=== PATIENT | female | born 1950 | race Caucasian/White ===

== ENCOUNTER 2017-10-09 11:24 | Inpatient (IN) ==
[2017-10-09] MEDS ORDERED: 0.9 % Sodium Chloride 1,000 ML IVC ONE (11:48)
[2017-10-09 12:07] LABS: VBG Ionized Calcium 0.86 mmol/L (1.15-1.35)
[2017-10-09 12:08] LABS: Prothrombin Time 10.3 Seconds (9.4-12.1)
[2017-10-09 12:10] LABS: Basophils # 0.1 K/mcL (0.0-0.2); Basophils % 0.7 %; Eosinophils # 0.2 K/mcL (0.0-0.6); Eosinophils % 3.3 %; Hematocrit 37.5 % (35.3-44.9); Hemoglobin 12.8 g/dL (11.5-15.4); Immature Granulocytes % 0.9 % (0-4); Lymphocytes # 1.7 K/mcL (0.6-4.6); Lymphocytes % 24.9 %; Mean Corpuscular HGB Conc 34.1 g/dL (31.6-35.5); Mean Corpuscular Hemoglobin 31.7 pg (28.0-33.3); Mean Corpuscular Volume 92.8 fL (83.0-100.0); Mean Platelet Volume 10.1 fL (9.4-12.4); Monocytes # 0.7 K/mcL (0.0-1.3); Monocytes % 9.7 %; Neutrophils # 4.2 K/mcL (1.6-8.9); Platelet Count 240 K/mcL (140-400); Red Blood Count 4.04 M/mcL (3.82-4.97); Segmented Neutrophils % 60.5 %
[2017-10-09 12:11] LABS: BUN/Creatinine Ratio 14 (6-26); Blood Urea Nitrogen 13 mg/dL (8-23); Calcium 7.1 mg/dL (8.6-10.3); Carbon Dioxide 26 mEq/L (23-29); Chloride 105 mEq/L (98-107); Glucose 117 mg/dL (70-105); Osmolality,Calculated 293 (280-300); Potassium 3.9 mEq/L (3.5-5.1); Sodium 141 mEq/L (136-145); eGFR For African Americans > 60 (> 60); eGFR For Non-African Americans > 60 (> 60)
[2017-10-09 12:27] LABS: Thyroid Stimulating Hormone 3.146 mcIU/mL (0.340-5.600)
[2017-10-09 12:32] LABS: Magnesium 1.9 mg/dL (1.6-2.6)
[2017-10-09] MEDS ORDERED: Calcium Gluconate 1,000 MG in D5% in Water 100 ML IVPB STA (13:04)
--- NOTE | 2017-10-09 13:53 | Electrocardiograph Report ---
[place] [employer] Test Date: 2017-10-09 Pat Name: Marlene Maldonado Department: 102 Room: Gender: F Archeology Faculty Member: : [id number] Requested By: Raul Kennedy Order Number: [id number] Reading MD: Mark Mejia DO Measurements Intervals [place] Rate: 74 P: ME: 0 QRS: -9 QRSD: 88 T: -4 QT: 355 QTc: 383 Interpretive Statements ATRIAL FIBRILLATION POSSIBLE RIGHT VENTRICULAR CONDUCTION DELAY [RSR (QR) IN V1/V2] ABNORMAL RHYTHM ECG Electronically Signed On 10-09-2017 13:51:55 EST by Mark Mejia DO
[2017-10-09] MEDS ORDERED: Naloxone 0.4 MG/ML INJ IVP PRN (14:57)
[2017-10-09] MEDS ORDERED: Ondansetron 4 MG/2 ML VIAL IVP PRN (14:57)
--- NOTE | 2017-10-09 15:08 | Internal Med History&Physical ---
Date of Encounter: 10/09/17 Time of Encounter: 15:05 Assessment and Plan (1) Hypocalcemia Current visit: Yes Status: Acute 1 patient has a history of parathyroid disease she had her parathyroid removed several years ago and has been taking calcium in August her calcium level was elevated and her PCP decreased her calcitriol to twice a day instead of 3 times a day. Over the past few weeks she has been noticing tingling in her lower extremities over the past 3 days as worsened and spread to her hands and face. She did have an episode several years ago a severe hypocalcemia. Today calcium was 7.1 I calvin was 0.86. She had negative Trousseau,chvosteck no prolonged QT. She was given IV calcium in the ER. We will resume calcitriol and calcium at 3 times a day Continuous cardiac monitoring We will check calcium and replace as needed (2) Hypertension Current visit: No Status: Chronic Presently controlled we will continue with home medications Qualifiers: Hypertension type: essential hypertension Qualified Code(s): I10 - Essential (primary) hypertension (3) GERD (gastroesophageal reflux disease) Current visit: No Status: Chronic Continue with Prilosec Qualifiers: Esophagitis presence: with esophagitis Qualified Code(s): K21.0 - Gastro- esophageal reflux disease with esophagitis (4) Hypothyroid Current visit: Yes Status: Acute continuous Synthroid Qualifiers: Hypothyroidism type: unspecified Qualified Code(s): E03.9 - Hypothyroidism , unspecified (5) DVT prophylaxis Current visit: Yes Status: Chronic Lovenox subcutaneous Internal Medicine - H&P: HPI Chief complaint: tingling in face Admitted From: Emergency Dept Plans for Post Hospital Care: Transfer Inp Rehab Fac History of present illness: Ms. Maldonado is a 67 year old female past medical history of hypertension hyperlipidemia thyroid parathyroid disease GERD. According to the patient for the past 3 weeks she has been experiencing lower leg tingling over the past 3-4 days the tingling has worsened in her legs and has tingling in her arms and hands. She has noted that her face is also tingling mostly on the sides. She is concerned because she has had history of hypocalcemia related to her parathyroid disease. She has had similar symptoms in the past and her calcium levels were low. She reports that in August her PCP reduced her calcium from 3 times a day to twice a day due to an elevated calcium level. She presented to the ER with the above complaints according to ER recordshead CT was negative for any intracranial abnormalities. Lab work was unremarkable except for calcium and ionized calcium were both low. EKG sinus rhythm with no prolonged QT. She was given IV calcium and has been admitted for further workup evaluation. Presently patient does not have any chest pain or shortness of breath. She is here today with a stable this time. I did review this case with Dr. Christopher who agrees with plan. Past Med Surg Social Fam HX - Past Medical History Medical history: CVA, hyperlipidemia, thyroid disease Psychiatric history: no psych history - Past Surgical History Surgical History: thyroidectomy - Social History Smoking Status: Never smoker Smokeless Tobacco Status: No Alcohol use: none Drug use: none - Family History Mother Living Status: Cause of : Aneurysm Hx Family Endocrine Disorder: Yes (Diabetes) Father Living Status: Cause of : [place] Hx Family Cancer: Yes (Melanoma) Hx Family Endocrine Disorder: Yes (Diabetes) Internal Medicine - H&P: Meds Calcitriol [Rocaltrol] 0.25 mcg PO DAILY 10/09/17 [History] Calcium Carbonate/Vitamin D3 [Calcium 500 + Vit D Caplet] 1 tab PO DAILY [History] Levothyroxine [Synthroid] 75 mcg PO HS 10/09/17 [History] Omeprazole [PriLOSEC] 20 mg PO DAILY 10/09/17 [History] Simvastatin [Zocor] 40 mg PO DAILY 10/09/17 [History] 3 Allergy/AdvReac Type Severity Reaction Status Date / Time Amoxicillin [From Augmentin] AdvReac Vomiting Verified 10/09/17 14:34 clavulanic acid AdvReac Vomiting Verified 10/09/17 14:34 [From Augmentin] dexamethasone AdvReac Agitated Verified 10/09/17 14:34 gabapentin AdvReac See Verified 10/09/17 14:34 Comments morphine AdvReac Shakiness Verified 10/09/17 14:34 prednisone AdvReac See Verified 10/09/17 14:34 Comments All Systems PM: A 10-system review of systems was performed and is negative for pertinent findings except as documented above in the HPI. - Constitutional Constitutional: weakness, no chills, no fever(s), no night sweats - EENT Eyes: no change in vision, no discharge, no pain, no photophobia Ears: no ear discharge, no ear pain, no tinnitus Nose, mouth and throat: no dysphagia, no nasal discharge, no neck pain, no sore throat - Cardiovascular Cardiovascular ROS IM: no chest pain, no diaphoresis, no dyspnea, no lightheadedness, no palpitations, no syncope - Respiratory Respiratory: no cough, no dyspnea, no wheezing, no excessive phlegm production - Gastrointestinal Gastrointestinal: no abdominal pain, no diarrhea, no hematemesis, no hematochezia, no melena, no nausea, no vomiting - Genitourinary Genitourinary: no change in urinary stream, no dysuria, no flank pain, no hematuria - Musculoskeletal Musculoskeletal ROS IM: tingling - Integumentary Integumentary IM: no rash, no unusual bruising - Neurological Neurological ROS: tingling - Constitutional Vitals: Temp Pulse Resp BP Pulse Ox 98.0 F 87 18 121/85 97 10/09/17 11:26 10/09/17 13:21 10/09/17 13:21 10/09/17 13:21 10/09/17 13:21 General appearance: Present: A&O X 3, answers questions appropriately - Head Head exam: Present: atraumatic, normocephalic - Eye Eye exam: Present: PERRL, conjuntiva pink, sclera anicteric Pupils: Present: PERRL - Neck Neck exam general surgery: Present: supple, trachea midline. Absent: lymphadenopathy - Respiratory Respiratory exam: Present: CTAB. Absent: accessory muscle use, rales, rhonchi, wheezes - Cardiovascular Cardiovascular exam: Present: RRR, +S1, +S2. Absent: diastolic murmur, gallop, rubs, systolic murmur - GI/Abdominal GI/Abdominal exam: Present: normal bowel sounds, soft, no peritoneal signs. Absent: distended, tenderness - Extremities Exam Extremities exam: Present: warm, radial pulses palpable and symmetrical. Absent : calf tenderness, cyanotic, pedal edema - Neurological Exam Neurological exam: Present: alert, CN II-XII intact, oriented X3, no focal deficits - Skin Skin exam: Present: dry, intact Internal Med - H&P Results - Labs CBC & Chem 7: 10/09/17 11:49 10/09/17 11:49 Labs: Short CBC 10/09/17 Range/Units 11:49 WBC 7.0 (4.3-11.1) K/mcL Hgb 12.8 (11.5-15.4) g/dL Hct 37.5 (35.3-44.9) % Plt Count 240 (140-400) K/mcL Neutrophils # 4.2 (1.6-8.9) K/mcL BMP 10/09/17 11:49 Sodium 141 Potassium 3.9 Chloride 105 Carbon Dioxide 26 BUN 13 Creatinine 0.92 Glucose 117 H Calcium 7.1 L Cardiac Enzymes 10/09/17 Range/Units 11:49 Troponin I < 0.03 (< 0.04) ng/mL - EKG Data EKG shows normal: sinus rhythm - EKG Data Prior EKG available for review: yes - Impressions ITS Impressions Head CT 10/09/17 13:04 IMPRESSION: 1. No acute intracranial abnormality. D/ / Renny Gallegos MD / Renny Gallegos MD Interpreting Provider: Renny Gallegos MD - Diagnostic Studies Other Images Additional comments: Head CT 10/09/17 13:04
--- NOTE | 2017-10-09 15:48 | Emergency Department Note ---
Disposition Clinical Impression: Hypocalcemia Disposition: Admitted As Inpatient Condition: Good Neuro HPI - General Chief Complaint: ED Neuro Symptoms/Deficit Stated Complaint: numbness to face, dizzy Time Seen by Provider: 10/09/17 11:33 Source: patient Limitations: no limitations Nursing Notes Reviewed: Yes Vital Signs Reviewed: Yes - History of Present Illness HPI Narrative: Patient presents today for evaluation of paresthesias, leg cramps, legs giving out and falls. Patient states that she had a parathyroidectomy and partial removal of her thyroid gland in the past. Patient has been on calcium pills. Primary care reduced her calcium proximally 6 weeks ago. Patient concerned that she is having symptoms consistent with hypocalcemia. Symptoms similar to previous hypocalcemic episodes. Patient describes paresthesias and tingling in the extremities as well as left face. Muscle spasms with associated falls. Patient states she did not hit her head or lose consciousness. Will be further evaluated for lateral abnormalities. - Related Data Home Medications: Home Medications Medication Instructions Recorded Confirmed Calcitriol [Rocaltrol] 0.25 mcg PO DAILY 10/09/17 10/09/17 Calcium Carbonate/Vitamin D3 1 tab PO DAILY 10/09/17 10/09/17 [Calcium 500 + Vit D Caplet] Levothyroxine [Synthroid] 75 mcg PO HS 10/09/17 10/09/17 Omeprazole [PriLOSEC] 20 mg PO DAILY 10/09/17 10/09/17 Simvastatin [Zocor] 40 mg PO DAILY 10/09/17 10/09/17 Allergies/Adverse Reactions: Allergies Allergy/AdvReac Type Severity Reaction Status Date / Time Amoxicillin [From Augmentin] AdvReac Vomiting Verified 10/09/17 14:34 clavulanic acid AdvReac Vomiting Verified 10/09/17 14:34 [From Augmentin] dexamethasone AdvReac Agitated Verified 10/09/17 14:34 gabapentin AdvReac See Verified 10/09/17 14:34 Comments morphine AdvReac Shakiness Verified 10/09/17 14:34 prednisone AdvReac See Verified 10/09/17 14:34 Comments Review of Systems: CONSTITUTIONAL: No weight loss, fever, chills, weakness or fatigue. HEENT: Eyes: No visual changes. Ears, Nose, Throat: No hearing loss, difficulty talking or unable to swallow. SKIN: No rash or itching. CARDIOVASCULAR: No chest pain, chest pressure or chest discomfort. No palpitations or edema. RESPIRATORY: No shortness of breath, cough or sputum. GASTROINTESTINAL: No anorexia, nausea, vomiting or diarrhea. No abdominal pain or blood. GENITOURINARY: No burning on urination or hematuria. NEUROLOGICAL: Paresthesias to the extremities and left face No headache, dizziness, syncope, paralysis, ataxia. No change in bowel or bladder control. MUSCULOSKELETAL: Muscle spasms Past Medical History - Past Medical History Medical history: Reports: CVA, hyperlipidemia, thyroid disease Surgical history: Reports: thyroidectomy Psychiatric history: Reports: no psych history - Social History Smoking Status: Never smoker Smokeless Tobacco Status: No Alcohol use: Reports: none Drug use: Reports: none Physical Exam General: Well appearing, nontoxic, no acute distress, chronic tremor. Head: Normocephalic Atraumatic Eyes: PERRL, EOMI ENT: Airway patent, no stridor Neck: supple, no meningismus Chest: Lungs clear to auscultation bilateral Cardiac: Regular rate and rhythm, no murmurs, rubs or gallops Abdomen: soft, nontender, nondistended; no guarding, rebound, or tenderness to percussion Musculoskeletal: Calves symmetric, nontender, no palpable cord Skin: No rash, normal skin tone Neuro: Alert and Oriented to person, place, and time; paresthesias to left face and extremities. No sensation deficit. Pain and electric shocks to the left extremity with inflation of BP cuff. - General Limitations: no limitations General appearance: alert, anxious Course Course Narrative: Summary: Patient presented with numbness and tingling the extremities as well as intermittent muscle spasms. Tingling of the left face. Patient states similar to previous hypocalcemic episode she had in the past. Previous parathyroidectomy and partial removal of thyroid gland. Patient decreased her calcium intake a proximal 6 weeks ago at PCPs instructions. Patient is having some recent falls secondary legs giving out. Patient found to be hypocalcemia. Calcium given. Improvement in symptoms. Discussed with hospitalist. Patient accepted for admission. - Reevaluation(s) Reevaluation #1: Patient hypocalcemic. Calcium gluconate given. Symptoms have significantly improved after administration. - Consultations Consultation #1: Discussed with Dr. Christopher. Pt accepted. Vital Signs Temperature 98.0 F 10/09/17 11:26 Pulse Rate 98 01/08/18 11:26 Respiratory Rate 20 10/09/17 11:26 Blood Pressure 143/88 10/09/17 11:26 O2 Sat by Pulse Oximetry 99 10/09/17 11:26 Temperature 99.0 F 10/09/17 19:06 Pulse Rate 84 10/09/17 19:06 Respiratory Rate 16 10/09/17 19:06 Blood Pressure 117/79 10/09/17 19:06 O2 Sat by Pulse Oximetry 93 10/09/17 19:06 Oxygen Delivery Oxygen Delivery Room Air Neuro Symptoms/Deficit - Lab Data Result diagrams: 10/09/17 11:49 10/09/17 11:49 Lab Results 10/09/17 10/09/17 10/09/17 Range/Units 11:49 11:49 11:49 WBC 7.0 (4.3-11.1) K/mcL RBC 4.04 (3.82-4.97) M/mcL Hgb 12.8 (11.5-15.4) g/dL Hct 37.5 (35.3-44.9) % MCV 92.8 (83.0-100.0) fL MCH 31.7 (28.0-33.3) pg MCHC 34.1 (31.6-35.5) g/dL RDW 13.0 (11.5-14.5) % Plt Count 240 (140-400) K/mcL MPV 10.1 (9.4-12.4) fL Immature Gran % 0.9 (0-4) % Seg Neutrophils % 60.5 % Lymphocytes % 24.9 % Monocytes % 9.7 % Eosinophils % 3.3 % Basophils % 0.7 % Neutrophils # 4.2 (1.6-8.9) K/mcL Lymphocytes # 1.7 (0.6-4.6) K/mcL Monocytes # 0.7 (0.0-1.3) K/mcL Eosinophils # 0.2 (0.0-0.6) K/mcL Basophils # 0.1 (0.0-0.2) K/mcL PT 10.3 (9.4-12.1) Seconds INR 1.0 Sodium 141 (136-145) mEq/L Potassium 3.9 (3.5-5.1) mEq/L Chloride 105 (98-107) mEq/L Carbon Dioxide 26 (23-29) mEq/L BUN 13 (8-23) mg/dL Creatinine 0.92 (0.60-1.20) mg/dL Est GFR ( Amer) > 60 (> 60) Est GFR (Non-Af Amer) > 60 (> 60) BUN/Creatinine Ratio 14 (6-26) Glucose 117 H (70-105) mg/dL Calculated Osmolality 293 (280-300) Calcium 7.1 L (8.6-10.3) mg/dL Venous Ioniz Calcium (1.15-1.35) mmol/L Magnesium (1.6-2.6) mg/dL Troponin I (< 0.04) ng/mL TSH (0.340-5.600) mcIU/mL 10/09/17 10/09/17 10/09/17 Range/Units 11:49 11:49 12:05 WBC (4.3-11.1) K/mcL RBC (3.82-4.97) M/mcL Hgb (11.5-15.4) g/dL Hct (35.3-44.9) % MCV (83.0-100.0) fL MCH (28.0-33.3) pg MCHC (31.6-35.5) g/dL RDW (11.5-14.5) % Plt Count (140-400) K/mcL MPV (9.4-12.4) fL Immature Gran % (0-4) % Seg Neutrophils % % Lymphocytes % % Monocytes % % Eosinophils % % Basophils % % Neutrophils # (1.6-8.9) K/mcL Lymphocytes # (0.6-4.6) K/mcL Monocytes # (0.0-1.3) K/mcL Eosinophils # (0.0-0.6) K/mcL Basophils # (0.0-0.2) K/mcL PT (9.4-12.1) Seconds INR Sodium (136-145) mEq/L Potassium (3.5-5.1) mEq/L Chloride (98-107) mEq/L Carbon Dioxide (23-29) mEq/L BUN (8-23) mg/dL Creatinine (0.60-1.20) mg/dL Est GFR ( Amer) (> 60) Est GFR (Non-Af Amer) (> 60) BUN/Creatinine Ratio (6-26) Glucose (70-105) mg/dL Calculated Osmolality (280-300) Calcium (8.6-10.3) mg/dL Venous Ioniz Calcium 0.86 L (1.15-1.35) mmol/L Magnesium 1.9 (1.6-2.6) mg/dL Troponin I < 0.03 (< 0.04) ng/mL TSH 3.146 (0.340-5.600) mcIU/mL Attestation Statement - Attestation Attestation: I, Raul Kennedy, examined this patient and my medical decision-making was reviewed with the NEUROPSYCHOLOGY DIRECTOR/PA/Advanced Practice Nurse/Resident Physician. I agree with the documented findings, disposition and treatment plan as described except to the extent set forth below. 77-year-old female presents emergency department for further evaluation of paresthesias, leg spasm and multiple falls. Patient states the symptoms feel similar to her previous hypocalcemic episodes. 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 Patient recently decreased the dose of calcium from 3 to 2 times a day. Patient has paresthesias of the left-sided face as well as the bilateral upper and lower extremities. She has evidence spasm on exam. Patient does have hypocalcemia on evaluation. Patient will be admitted to the hospital secondary to her weakness, falls, hypocalcemia and for further evaluation and adjustment of her medications. Patient adamantly denies hitting her head on the recent falls.
--- NOTE | 2017-10-09 15:53 | Event Note ---
Date of Encounter: 10/09/17 Time of Encounter: 15:51 Patient seen and examined with nurse practitioner. Patient presents with symptoms of hypocalcemia. Since August patient was advised by PCP to decrease her calcium and vitamin D pills to twice instead of 3 times daily which she has done. This was because according to the patient calcium level was elevated. Will start her usual calcium and vitamin D dose. Follow calcium every 6 hours. 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 She denies any seizures. Observation admission
[2017-10-09] MEDS: (Calcium Carbonate/Vitamin D3 [Calcium 500 + Vit D Ca) PO SCH ×2 (16:51→20:26)
[2017-10-10] MEDS: Acetaminophen 325 MG TABLET PO PRN ×3 (03:11→16:55)
[2017-10-10 04:47] LABS: Basophils # 0.1 K/mcL (0.0-0.2); Basophils % 0.7 %; Eosinophils # 0.2 K/mcL (0.0-0.6); Hematocrit 33.6 % (35.3-44.9); Hemoglobin 11.3 g/dL (11.5-15.4); Immature Granulocytes % 0.3 % (0-4); Lymphocytes # 1.6 K/mcL (0.6-4.6); Mean Corpuscular HGB Conc 33.6 g/dL (31.6-35.5); Mean Corpuscular Hemoglobin 31.5 pg (28.0-33.3); Mean Corpuscular Volume 93.6 fL (83.0-100.0); Mean Platelet Volume 10.1 fL (9.4-12.4); Monocytes # 0.7 K/mcL (0.0-1.3); Monocytes % 8.9 %; Neutrophils # 4.8 K/mcL (1.6-8.9); Platelet Count 200 K/mcL (140-400); Red Blood Count 3.59 M/mcL (3.82-4.97); Red Cell Distribution Width 12.9 % (11.5-14.5); Segmented Neutrophils % 65.1 %
[2017-10-10 05:14] LABS: BUN/Creatinine Ratio 14 (6-26); Blood Urea Nitrogen 14 mg/dL (8-23); Calcium 7.1 mg/dL (8.6-10.3); Carbon Dioxide 26 mEq/L (23-29); Chloride 107 mEq/L (98-107); Chol/HDL Ratio 3.8 (0-4.9); Cholesterol 157 mg/dL (< 200); Glucose 115 mg/dL (70-105); HDL Cholesterol 41 mg/dL (40-59); LDL Cholesterol,Calculated 82 mg/dL (0-99); Magnesium 1.9 mg/dL (1.6-2.6); Osmolality,Calculated 295 (280-300); Potassium 3.6 mEq/L (3.5-5.1); Sodium 142 mEq/L (136-145); Triglycerides 169 mg/dL (< 150); eGFR For African Americans > 60 (> 60); eGFR For Non-African Americans 55 (> 60)
[2017-10-10] MEDS: (Calcium Carbonate/Vitamin D3 [Calcium 500 + Vit D Ca) PO SCH ×3 (08:30→20:31)
--- NOTE | 2017-10-10 14:30 | Internal Med Progress Note ---
Date of Encounter: 10/10/17 Time of Encounter: 14:26 - Assessment and plan (1) Hypocalcemia Current Visit: Yes Status: Acute Assessment and plan: known hx of parathyroid disease. Takes calcitriol at home; patient reports calcium level had been elevated 08/2017 and calcitriol was decreased to BID from TID. Symptomatic to left face paresthesias on arrival. Calcium 7.1, ionized calcium 0.86. Received 2 doses IV calcium in the ER. Repeat calcium 7.1. Cont home calcitriol. Give another dose of IV calcium gluconate. TSH, IPTH, albumin and magnesium pending. (2) Hypothyroid Current Visit: Yes Status: Acute Assessment and plan: per hx. TSH normal. Cont home levothyroxine Qualifiers: Hypothyroidism type: unspecified Qualified Code(s): E03.9 - Hypothyroidism , unspecified (3) GERD (gastroesophageal reflux disease) Current Visit: No Status: Chronic Assessment and plan: per hx. Cont home PPI Qualifiers: Esophagitis presence: with esophagitis Qualified Code(s): K21.0 - Gastro- esophageal reflux disease with esophagitis (4) DVT prophylaxis Current Visit: Yes Status: Chronic Assessment and plan: heparin - Subjective Interval history: Seen and examined at bedside; patient is new to me. Information obtained from chart review and patient report. Patient says she feels better. Still with paresthesias to left side of face and hands but overall improved. Says she has feel better when to go home. She is agreeable to stay overnight for IV calcium and monitoring of repeat electrolytes. - Constitutional Vitals: Temp Pulse Resp BP Pulse Ox 98.0 F 91 16 121/81 94 10/10/17 11:06 10/10/17 11:06 10/10/17 11:06 10/10/17 11:06 10/10/17 11:06 General appearance: Present: A&O X 3, answers questions appropriately - Head Head exam: Present: atraumatic, normocephalic - Eye Eye exam: Present: PERRL, conjuntiva pink, sclera anicteric Pupils: Present: PERRL - Neck Neck exam general surgery: Present: supple, trachea midline. Absent: lymphadenopathy - Respiratory Respiratory exam: Present: CTAB. Absent: accessory muscle use, rales, rhonchi, wheezes - Cardiovascular Cardiovascular exam: Present: RRR, +S1, +S2. Absent: diastolic murmur, gallop, rubs, systolic murmur - GI/Abdominal GI/Abdominal exam: Present: normal bowel sounds, soft, no peritoneal signs. Absent: distended, tenderness - Extremities Exam Extremities exam: Present: warm, radial pulses palpable and symmetrical. Absent : calf tenderness, cyanotic, pedal edema - Neurological Exam Neurological exam: Present: CN II-XII intact, oriented X3, no focal deficits. Absent: pronater drift, facial droop, speech deficit - Skin Skin exam: Present: dry, intact Internal Medicine: Result - Labs CBC & Chem 7: 10/10/17 04:15 10/10/17 04:15 Labs: Short CBC 10/10/17 Range/Units 04:15 WBC 7.4 (4.3-11.1) K/mcL Hgb 11.3 L D (11.5-15.4) g/dL Hct 33.6 L (35.3-44.9) % Plt Count 200 (140-400) K/mcL Neutrophils # 4.8 (1.6-8.9) K/mcL BMP 10/10/17 04:15 Sodium 142 Potassium 3.6 Chloride 107 Carbon Dioxide 26 BUN 14 Creatinine 1.01 Glucose 115 H Calcium 7.1 L Liver Function 10/10/17 Range/Units 11:06 Albumin 3.9 (3.5-5.7) g/dL - ABG Interpretation ABG results: PT/INR, D-dimer PT 10.3 Seconds (9.4-12.1) 10/09/17 11:49 Consult Discharge Plan - Plan Referrals: Raul Abdalla MD [Primary Care Provider] -
[2017-10-10] MEDS: *HR* Heparin 5,000 UNIT/ML VIAL SQ SCH (20:31)
[2017-10-11] MEDS: Acetaminophen 325 MG TABLET PO PRN (02:46)
[2017-10-11] MEDS ORDERED: *HR* HYDROcodone/Acet 5/325 mg TABLET PO ONE (02:59)
[2017-10-11] MEDS: *HR* Heparin 5,000 UNIT/ML VIAL SQ SCH (04:55)
[2017-10-11 05:57] LABS: Alanine Aminotransferase 15 Units/L (7-52); Albumin 3.7 g/dL (3.5-5.7); Albumin/Globulin Ratio 1.3 (1.1-2.2); Alkaline Phosphatase 54 Units/L (34-104); Aspartate Amino Transferase 15 Units/L (13-39); BUN/Creatinine Ratio 15 (6-26); Bilirubin,Total 0.4 mg/dL (0.3-1.0); Blood Urea Nitrogen 14 mg/dL (8-23); Carbon Dioxide 29 mEq/L (23-29); Chloride 105 mEq/L (98-107); Globulin 2.9 g/dL (2.4-3.5); Glucose 90 mg/dL (70-105); Osmolality,Calculated 292 (280-300); Potassium 3.9 mEq/L (3.5-5.1); Sodium 141 mEq/L (136-145); Total Protein 6.6 g/dL (6.4-8.9); eGFR For African Americans > 60 (> 60); eGFR For Non-African Americans > 60 (> 60)
[2017-10-11 07:07] VITALS: BP 92/60
[2017-10-11 08:41] LABS: VBG Ionized Calcium 1.04 mmol/L (1.15-1.35)
[2017-10-11] MEDS ORDERED: Calcium Chloride 1,000 MG in 0.9 % Sodium Chloride 100 ML IVPB ONE (09:19)
[2017-10-11] MEDS: (Calcium Carbonate/Vitamin D3 [Calcium 500 + Vit D Ca) PO SCH (09:20)
--- NOTE | 2017-10-11 11:00 | Discharge Summary ---
Date of Encounter: 10/11/17 Time of Encounter: 10:40 - Discharge Diagnosis (1) Hypoparathyroidism Priority: Primary Status: Acute Comments: known hx of hypoparathyroidism (patient reports hx partial thyroidectomy with both right parathyroids removed at [facility]; records requested but no mention of thyroidectomy and [facility] records). Home Calcitrol decreased from 3 times a day to twice a day and 08/2017. Presented with gait imbabkance and left face paresthesias on arrival. Received a total of 3 gms IV calcium gluconate. Repeat Ca 8.0. iPTH 1.4, vitamin-D level 27. Asymptomatic at time of discharge; denied tetany, no paresthesias. Cont home calcitriol at TID, calcium and Vit-D supplements. Appt made with Endocrinology on 10/11/2016 at 1300 Qualifiers: Hypoparathyroidism type: other hypoparathyroidism Qualified Code(s): E20.8 - Other hypoparathyroidism (2) Hypocalcemia Priority: Primary Status: Acute Comments: secondary to hypoparathyroidism. No prolonged Qt. 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 Was evaluated by ENT suspected possible very early acoustic neuroma; plan was for repeat brain MRI in 6 months (which would be 11/2017). No acute needs at this time. Can follow-up outpatient as previously planned (4) Hypothyroid Priority: Secondary Status: Chronic Comments: per hx. TSH normal. Cont home levothyroxine Qualifiers: Hypothyroidism type: unspecified Qualified Code(s): E03.9 - Hypothyroidism , unspecified (5) GERD (gastroesophageal reflux disease) Priority: Secondary Status: Chronic Comments: per hx. Cont home PPI Qualifiers: Esophagitis presence: without esophagitis Qualified Code(s): K21.9 - Gastro -esophageal reflux disease without esophagitis - Discharge Medications Prescriptions: Calcitriol [Rocaltrol] 0.25 mcg PO TID #120 capsule Calcium Carbonate [Calcium] 1,000 mg PO BID #120 tablet Home Medications: Levothyroxine [Synthroid] 75 mcg PO HS 10/09/17 [History] Omeprazole [PriLOSEC] 20 mg PO DAILY 10/09/17 [History] Simvastatin [Zocor] 40 mg PO DAILY 10/09/17 [History] Calcitriol [Rocaltrol] 0.25 mcg PO TID #120 capsule 10/11/17 [Rx] Calcium Carbonate [Calcium] 1,000 mg PO BID #120 tablet 10/11/17 [Rx] Allergies/Adverse Reactions: 3 Allergy/AdvReac Type Severity Reaction Status Date / Time Amoxicillin [From Augmentin] AdvReac Vomiting Verified 10/09/17 14:34 clavulanic acid AdvReac Vomiting Verified 10/09/17 14:34 [From Augmentin] dexamethasone AdvReac Agitated Verified 10/09/17 14:34 gabapentin AdvReac See Verified 10/09/17 14:34 Comments morphine AdvReac Shakiness Verified 10/09/17 14:34 prednisone AdvReac See Verified 10/09/17 14:34 Comments Date of admission: 10/10/17 16:28 Primary care physician: Raul Abdalla MD Discharging clinician: Lisa Samuel Anticipated date of discharge: 10/11/17 - Patient Status Disposition: Home, Self-Care Condition: Good Functional capacity at discharge: independent ambulation Overall status at discharge: patient is back to baseline - Discharge Instructions Instructions: Hypothyroidism (DC) Follow Up With: [facility] [Provider Group] Ivonne Maguire MD [Partnered Physician] - 10/11/17 1:00 pm Raul Abdalla MD [Primary Care Provider] - 10/23/17 2:00 pm - Diet and Activity Activity: increase activity as tolerated Diet: advance to your usual diet Interval History: Seen and examined at bedside; says she had a headache last night, otherwise she has no complaints. She is agreeable to establish care with Endo. Denies numbness /tingling. Feels she is back to baseline. Hospital course: See assessment and plan for hospital course - Time Spent with Patient Total time spent providing and/or coordinating discharge services: - Constitutional Vitals: Temp Pulse Resp BP Pulse Ox 97.6 F 72 16 92/60 93 10/11/17 07:01 10/11/17 07:01 10/11/17 07:01 10/11/17 07:01 10/11/17 07:01 General appearance: Present: A&O X 3, no acute distress, answers questions appropriately - Head Head exam: Present: atraumatic, normocephalic - Eye Eye exam: Present: PERRL, conjuntiva pink, sclera anicteric Pupils: Present: PERRL - Neck Neck exam general surgery: Present: supple, trachea midline. Absent: lymphadenopathy - Respiratory Respiratory exam: Present: CTAB. Absent: accessory muscle use, rales, rhonchi, wheezes - Cardiovascular Cardiovascular exam: Present: RRR, +S1, +S2. Absent: diastolic murmur, gallop, rubs, systolic murmur - GI/Abdominal GI/Abdominal exam: Present: normal bowel sounds, soft, no peritoneal signs. Absent: distended, tenderness - Extremities Exam Extremities exam: Present: warm, radial pulses palpable and symmetrical. Absent : calf tenderness, cyanotic, pedal edema - Neurological Exam Neurological exam: Present: CN II-XII intact, oriented X3, no focal deficits. Absent: pronater drift, facial droop, speech deficit - Skin Skin exam: Present: dry, intact
== END 2017-10-11 12:48 | disposition home or self-care (01) | DRG 641 ==
LOC: 3BNU 11:24 → EMEROO 11:24 → 3BNU 19:02
PROVIDERS: ADMIT Registered Nurse; ATTEND Registered Nurse

== ENCOUNTER 2018-09-02 14:12 | Observation (INO) ==
[2018-09-02] MEDS ORDERED: 0.9 % Sodium Chloride 1,000 ML IVC ONE (14:31)
[2018-09-02] MEDS ORDERED: diazePAM 10 MG/2 ML SYRINGE IVP STA (14:34)
[2018-09-02] MEDS ORDERED: Ondansetron 4 MG/2 ML VIAL IVP STA (14:36)
[2018-09-02 14:54] LABS: Basophils % 0.4 %; Eosinophils # 0.2 K/mcL (0.0-0.6); Eosinophils % 2.2 %; Hemoglobin 13.4 g/dL (11.5-15.4); Immature Granulocytes % 0.3 % (0-4); Lymphocytes # 1.8 K/mcL (0.6-4.6); Lymphocytes % 19.4 %; Mean Corpuscular HGB Conc 32.7 g/dL (31.6-35.5); Mean Corpuscular Hemoglobin 29.7 pg (28.0-33.3); Mean Corpuscular Volume 90.9 fL (83.0-100.0); Mean Platelet Volume 9.8 fL (9.4-12.4); Monocytes # 0.7 K/mcL (0.0-1.3); Monocytes % 7.6 %; Neutrophils # 6.6 K/mcL (1.6-8.9); Platelet Count 281 K/mcL (140-400); Red Blood Count 4.51 M/mcL (3.82-4.97); Red Cell Distribution Width 13.1 % (11.5-14.5); Segmented Neutrophils % 70.1 %
[2018-09-02 15:13] LABS: Alanine Aminotransferase 20 Units/L (7-52); Albumin 4.1 g/dL (3.5-5.7); Albumin/Globulin Ratio 1.4 (1.1-2.2); Alkaline Phosphatase 72 Units/L (34-104); Aspartate Amino Transferase 22 Units/L (13-39); BUN/Creatinine Ratio 14 (6-26); Bilirubin,Total 0.5 mg/dL (0.3-1.0); Blood Urea Nitrogen 14 mg/dL (8-23); Calcium 8.4 mg/dL (8.6-10.3); Carbon Dioxide 24 mEq/L (23-29); Chloride 103 mEq/L (98-107); Glucose 116 mg/dL (70-105); Osmolality,Calculated 289 (280-300); Sodium 139 mEq/L (136-145); Total Protein 7.1 g/dL (6.4-8.9); eGFR For Non-African Americans 57 (> 60)
[2018-09-02 15:15] LABS: Troponin I < 0.03 ng/mL (< 0.04)
[2018-09-02] MEDS ORDERED: Isovue-370 500 ML INFUS..BTL IV ONE (15:23)
[2018-09-02] MEDS ORDERED: diazePAM 5 MG TABLET PO STA (16:07)
[2018-09-02] MEDS ORDERED: Naloxone 0.4 MG/ML INJ IVP PRN (17:32)
[2018-09-02] MEDS ORDERED: traMADol 50 MG TABLET PO PRN (17:32)
--- NOTE | 2018-09-02 18:14 | Emergency Department Note ---
Disposition Clinical Impression: Vertigo Disposition: Admitted As Inpatient Condition: Good General Adult HPI - General Chief complaint: ED Dizziness Stated complaint: Dizzy Time Seen by Provider: 09/02/18 14:13 Source: patient, EMS Limitations: no limitations Nursing Notes Reviewed: Yes Vital Signs Reviewed: Yes - History of Present Illness HPI Narrative: Patient presents today to the emergency department for evaluation of dizziness. Dizziness started earlier this morning. Patient states the dizziness is worse anytime she attempts to move her head. Is slightly worse to the right. The patient has a hard time even sitting up in bed. Patient has a no difficulty with finger-nose or heel to sotelo. However on a tractor ocular eye muscle movements she is not able to follow my finger secondary to associated dizziness. Neurologic exam is otherwise normal. The patient will be treated accordingly as well as have lab work EKG and a CT of her head. Pain Scale: 0 - Related Data Home Medications Medication Instructions Recorded Confirmed RX: Levothyroxine [Synthroid] 75 mcg PO HS 10/09/17 09/02/18 RX: Omeprazole [PriLOSEC] 20 mg PO DAILY 10/09/17 09/02/18 RX: Simvastatin [Zocor] 40 mg PO DAILY 10/09/17 09/02/18 RX: Calcium Carbonate/Vitamin D3 1 tab PO TID 09/02/18 09/02/18 [Calcium 500 + Vit D Caplet] Previous Rx's Medication Instructions Recorded RX: Calcitriol [Rocaltrol] 0.25 mcg PO TID #120 capsule 10/11/17 RX: LORazepam [Ativan] 0.5 mg PO HS PRN 10 Days #10 tablet 09/03/18 RX: Meclizine HCl [Verticalm] 25 mg PO TID PRN #30 tablet 09/03/18 Allergies Allergy/AdvReac Type Severity Reaction Status Date / Time Amoxicillin [From Augmentin] AdvReac Vomiting Verified 10/09/17 14:34 clavulanic acid AdvReac Vomiting Verified 10/09/17 14:34 [From Augmentin] dexamethasone AdvReac Agitated Verified 10/09/17 14:34 gabapentin AdvReac See Verified 10/09/17 14:34 Comments morphine AdvReac Shakiness Verified 10/09/17 14:34 prednisone AdvReac See Verified 10/09/17 14:34 Comments All systems ED: reviewed and negative except as stated. Review of Systems: As Per HPI Constitutional: Denies: fever, chills, weakness Eyes: Reports: vision change (Secondary to vision changes making her dizzy while trying to follow objects) ENT ED: Denies: ear pain, throat pain, congestion Cardiovascular: Denies: chest pain, palpitations Respiratory: Denies: cough, dyspnea Gastrointestinal: Denies: abdominal pain, nausea, vomiting Genitourinary: Denies: urgency, dysuria Musculoskeletal: Denies: back pain, neck pain Integumentary: Denies: rash Neurological: Reports: other (Vertigo) Endocrine: Denies: fatigue Past Medical History - Past Medical History Medical history: Reports: CVA, DVT, hyperlipidemia, thyroid disease Surgical history: Reports: thyroidectomy Psychiatric history: Reports: no psych history - Social History Smoking Status: Never smoker Smokeless Tobacco Status: No Alcohol use: Reports: none Drug use: Reports: none Physical Exam - General Limitations: no limitations General appearance: alert, in no apparent distress - Head Head exam: atraumatic, normocephalic - Eye Eye exam: Present: normal appearance - ENT ENT exam: normal exam, normal oropharynx - Neck Neck exam: Present: normal inspection - Chest Chest inspection: Present: normal inspection, symmetric chest wall rise. Absent: tenderness - Respiratory Respiratory exam: Present: normal lung sounds bilaterally. Absent: respiratory distress, wheezes - Cardiovascular Cardiovascular exam: Present: regular rate, normal rhythm - Abdominal Exam Abdominal exam: Present: soft, Non-Tender - Extremities Exam Extremities exam: Absent: normal inspection, tenderness - Back Exam Back exam: Present: normal inspection - Neurological Exam Neurological exam: Present: alert, oriented X3, other (When extraocular eye testing the patient becomes significantly vertiginous worse to the left.) - Expanded Neurological Exam Patient oriented to: Present: person, place, time Speech: Present: fluid speech Cranial nerves: facial sensation (V): Normal, facial palsy (VII): Normal, gag reflex (IX): Normal, spinal accessory function (XI): Normal, tongue deviation (XII): Normal Cerebellar function: finger to nose: Normal, heel to sotelo: Normal Cerebellar function: normal gait Motor strength - LUE: 5/5 Motor strength - RUE: 5/5 Motor strength - LLE: 5/5 Motor strength - RLE: 5/5 Sensory exam upper extremity: light touch: Normal Sensory exam lower extremity: light touch: Normal Coma Scale Eye Opening: Spontaneous Coma Scale Motor Response: Obeys Commands Coma Scale Verbal Response: Oriented Coma Scale Total: 15 - Psychiatric Psychiatric exam: Present: normal affect - Skin Skin exam: Present: warm, dry, intact Course - Reevaluation(s) Reevaluation #1: Symptoms significant improved with meclizine. Patient does not want Valium as it makes her sleepy. The patient has gotten to the point where she can look around the room but has not gone to the point where she can ambulate. She does want to go home if possible given her inability to ambulate she will be admitted for further workup and evaluation. - Consultations Consultation #1: Discussed with neurosurgery, Dr. Ingram at [place]. Patient's findings likely incidental as it does not explain her symptoms. The aneurysm is 4 mm in nature and will need outpatient neurosurgical evaluation. Symptoms today likely related to BPV or labyrinthitis. She can call the office to schedule appointment at [phone]. Patient can be admitted here. If there is any further concern of the patient would like transferred stable accepted the patient. Consultation #2: Discussed with hospitalist. Patient accepted for admission. Vital Signs Temperature 97.8 F 09/02/18 14:16 Pulse Rate 107 09/02/18 14:16 Respiratory Rate 26 09/02/18 14:16 Blood Pressure 144/54 09/02/18 14:16 O2 Sat by Pulse Oximetry 99 09/02/18 14:16 Temperature 98.3 F 09/03/18 15:22 Pulse Rate 81 09/03/18 15:22 Respiratory Rate 15 09/03/18 15:22 Blood Pressure 121/79 09/03/18 15:22 O2 Sat by Pulse Oximetry 93 09/03/18 15:22 Oxygen Delivery Oxygen Delivery Room Air Medical Decision Making - Lab Data Result diagrams: 09/03/18 05:05 09/03/18 05:05 Lab Results 09/02/18 09/02/18 Range/Units 14:44 14:44 WBC 9.4 (4.3-11.1) K/mcL RBC 4.51 (3.82-4.97) M/mcL Hgb 13.4 (11.5-15.4) g/dL Hct 41.0 (35.3-44.9) % MCV 90.9 (83.0-100.0) fL MCH 29.7 (28.0-33.3) pg MCHC 32.7 (31.6-35.5) g/dL RDW 13.1 (11.5-14.5) % Plt Count 281 (140-400) K/mcL MPV 9.8 (9.4-12.4) fL Immature Gran % 0.3 (0-4) % Seg Neutrophils % 70.1 % Lymphocytes % 19.4 % Monocytes % 7.6 % Eosinophils % 2.2 % Basophils % 0.4 % Neutrophils # 6.6 (1.6-8.9) K/mcL Lymphocytes # 1.8 (0.6-4.6) K/mcL Monocytes # 0.7 (0.0-1.3) K/mcL Eosinophils # 0.2 (0.0-0.6) K/mcL Basophils # 0.0 (0.0-0.2) K/mcL Sodium 139 (136-145) mEq/L Potassium 4.0 (3.5-5.1) mEq/L Chloride 103 (98-107) mEq/L Carbon Dioxide 24 (23-29) mEq/L BUN 14 (8-23) mg/dL Creatinine 0.97 (0.60-1.20) mg/dL Est GFR ( Amer) > 60 (> 60) Est GFR (Non-Af Amer) 57 L (> 60) BUN/Creatinine Ratio 14 (6-26) Glucose 116 H (70-105) mg/dL Calculated Osmolality 289 (280-300) Calcium 8.4 L (8.6-10.3) mg/dL Total Bilirubin 0.5 (0.3-1.0) mg/dL AST 22 (13-39) Units/L ALT 20 (7-52) Units/L Alkaline Phosphatase 72 (34-104) Units/L Troponin I < 0.03 (< 0.04) ng/mL Serum Total Protein 7.1 (6.4-8.9) g/dL Albumin 4.1 (3.5-5.7) g/dL Globulin 3.0 (2.4-3.5) g/dL Albumin/Globulin Ratio 1.4 (1.1-2.2)
--- NOTE | 2018-09-02 18:18 | Internal Med History&Physical ---
Date of Encounter: 09/02/18 Time of Encounter: 18:11 Internal Medicine - H&P: HPI Chief complaint: dizziness Plans for Post Hospital Care: Home History of present illness: Ms. Maldonado is a 68 year old female PMH of hypothyroidism, hypoparathyriodism, HLD and auditory never abnormality. Patient presented to the ED due to dizziness. Patient reported that today she started experiencing dizziness spells which she described as the room spinning around. Reports that the dizziness spells worsens when she lays flat. Reported that she decided to come to the ED because she had one dizziness spell so severe her eyes blacked out, but denied LOC and felt like the wang were moving. she denies slurred speech, or focal neurological deficit associated with the dizziness. Reports some unsteady gait, but she recalls that this is a chronic issue. Denies chest pain, vomiting or abdominal pain, but reports feeling nauseated. Reports that her symptoms re solved after she received meclizine in the ED. Past Med Surg Social Fam HX - Past Medical History Medical history: CVA, DVT, hyperlipidemia, thyroid disease Additional medical history: hypothyroidism. no deficits from prior to CVA Psychiatric history: no psych history - Past Surgical History Surgical History: thyroidectomy Additional surgical history: right ankle, left arm, parathyroidectomy - Social History Smoking Status: Never smoker Smokeless Tobacco Status: No Alcohol use: none Drug use: none - Family History Mother Living Status: Hx Family Cancer: Yes (melenoma ) Hx Family Endocrine Disorder: Yes (Diabetes) Father Living Status: Hx Family Cancer: Yes (Melanoma) Hx Family Endocrine Disorder: Yes (Diabetes) Internal Medicine - H&P: Meds Levothyroxine [Synthroid] 75 mcg PO HS 10/09/17 [History] Omeprazole [PriLOSEC] 20 mg PO DAILY 10/09/17 [History] Simvastatin [Zocor] 40 mg PO DAILY 10/09/17 [History] Calcitriol [Rocaltrol] 0.25 mcg PO TID #120 capsule 10/11/17 [Rx] Calcium Carbonate/Vitamin D3 [Calcium 500 + Vit D Caplet] 1 tab PO TID 09/02/18 [History] Allergy/AdvReac Type Severity Reaction Status Date / Time Amoxicillin [From Augmentin] AdvReac Vomiting Verified 10/09/17 14:34 clavulanic acid AdvReac Vomiting Verified 10/09/17 14:34 [From Augmentin] dexamethasone AdvReac Agitated Verified 10/09/17 14:34 gabapentin AdvReac See Verified 10/09/17 14:34 Comments morphine AdvReac Shakiness Verified 10/09/17 14:34 prednisone AdvReac See Verified 10/09/17 14:34 Comments All Systems PM: A 10-system review of systems was performed and is negative for pertinent findings except as documented above in the HPI. - Constitutional Constitutional: no chills, no fever(s), no weakness - EENT Eyes: no floaters, no irritation Ears: no decreased hearing, no ear discharge, no ear pain, no tinnitus Nose, mouth and throat: no dental pain - Cardiovascular Cardiovascular ROS IM: no chest pain, no dyspnea on exertion, no edema - Respiratory Respiratory: no dyspnea, no wheezing - Gastrointestinal Gastrointestinal: no abdominal pain, no loose stools, no melena, no nausea - Genitourinary Genitourinary: no urinary frequency, no urinary hesitancy, no urinary urgency - Musculoskeletal Musculoskeletal ROS IM: no back pain, no limited range of motion, no numbness, no stiffness, no tingling - Neurological Neurological ROS: abnormal gait, vertigo, no abnormal movements, no abnormal s peech, no frequent falls, no headache(s), no lack of coordination, no loss of vision, no numbness, no restless legs, no tingling, no weakness - Psychiatric Psychiatric: no anxiety, no visual hallucinations - Endocrine Endocrine IM: no polydipsia, no polyphagia, no polyuria - Hematologic/Lymphatic Hematologic/Lymphatic: no lymphadenopathy - Allergic/Immunologic Allergic/Immunologic: no wheezing Additional comments: Rest of the review of system negative. - Constitutional Vitals: Temp Pulse Resp BP Pulse Ox 97.8 F 90 18 142/80 99 09/02/18 14:16 09/02/18 16:59 09/02/18 16:59 09/02/18 16:59 09/02/18 16:59 Exam: Vitals: reviewed. General: Patient is obese, alert, oriented, no acute distress, speaks in full sentences Head: atraumatic, normocephalic, Eye: normal appearance, PERRL, no scleral icterus, no conjunctival injection ENT: mucous membranes moist, normal external ear exam Neck: normal inspection, trachea midline, full ROM, no carotid bruits, movable lump felt in the right upper subclavian area. Respiratory: Good respiratory effort. Clear to auscultation bilaterally, no wheezing rales or crackles. Cardiovascular: RRR, s1 and s2 No clicks, rubs, gallops, or murmors. Abdomen: Obese, Bowel sounds present normoactive x-4 quadrants. Abdomen is soft, nondistended. No guarding or rebound. Musculoskeletal: Spontaneously moving all extremities. no edema, no calf tenderness Skin: warm, dry, intact. Neuro: Sensation light touch intact. Cranial nerves 2-12 is intact. Not aphasic, gait is steady, rapid hand movements intact, [id number] intact, Psych: Patient's affect is normal Internal Med - H&P Results - Labs CBC & Chem 7: 09/02/18 14:44 09/02/18 14:44 Labs: Short CBC 09/02/18 Range/Units 14:44 WBC 9.4 (4.3-11.1) K/mcL Hgb 13.4 (11.5-15.4) g/dL Hct 41.0 (35.3-44.9) % Plt Count 281 (140-400) K/mcL Neutrophils # 6.6 (1.6-8.9) K/mcL BMP 09/02/18 14:44 Sodium 139 Potassium 4.0 Chloride 103 Carbon Dioxide 24 BUN 14 Creatinine 0.97 Glucose 116 H Calcium 8.4 L Cardiac Enzymes 09/02/18 Range/Units 14:44 Troponin I < 0.03 (< 0.04) ng/mL Liver Function 09/02/18 Range/Units 14:44 Total Bilirubin 0.5 (0.3-1.0) mg/dL AST 22 (13-39) Units/L ALT 20 (7-52) Units/L Alkaline Phosphatase 72 (34-104) Units/L Albumin 4.1 (3.5-5.7) g/dL - Impressions ITS Impressions Chest X-Ray 09/02/18 14:31 IMPRESSION: No acute abnormality or finding to account for the patient's symptoms. D/ / 09/02/2018 15:15:48 Harry Kessler MD / [place] Interpreting Provider: Harry Kessler MD Head CT 09/02/18 14:31 IMPRESSION: No acute intracranial abnormality. D/ / Larry Seay MD / Larry Seay MD Interpreting Provider: Larry Seay MD Head CTA 09/02/18 15:23 IMPRESSION: No flow limiting stenosis or branch occlusion identified within the head or neck. Incidentally noted right infraclinoid ICA aneurysm. D/ / Jun Delgado MD / Jun Delgado MD Interpreting Provider: Jun Delgado MD Neck CTA 09/02/18 15:23 IMPRESSION: No flow limiting stenosis or branch occlusion identified within the head or neck. Incidentally noted right infraclinoid ICA aneurysm. D/ / Jun Delgado MD / Jun Delgado MD Interpreting Provider: Jun Delgado MD - Assessment and plan (1) Dizziness Current Visit: Yes Status: Acute Assessment and plan: Possible Benign positional vertigo. ABCD2 stroke 1 low probability dizziness resolved with meclizine will continue meclizine 25mg/PO TID Neurology consulted will discuss with neurology usefulness for MRI ENT evaluation as outpatient. (2) Lump on neck Current Visit: Yes Status: Chronic Assessment and plan: patient had an US of the neck on 07/13/18: no mass identified. (3) Hypoparathyroidism Current Visit: No Status: Chronic Assessment and plan: We will continue home medication patient on calcitriol 0.25 mcg/PO TID and calcium/Vit D3 Qualifiers: Hypoparathyroidism type: other hypoparathyroidism Qualified Code(s): E20.8 - Other hypoparathyroidism (4) Abnormality of internal auditory canal Current Visit: No Status: Chronic (5) GERD (gastroesophageal reflux disease) Current Visit: No Status: Chronic Assessment and plan: Continue omeprazole 20 mg by mouth daily. Qualifiers: Esophagitis presence: without esophagitis Qualified Code(s): K21.9 - Gastro-esophageal reflux disease without esophagitis (6) Hypothyroid Current Visit: No Status: Chronic Assessment and plan: We will continue levothyroxine 75 mcg/PO daily Qualifiers: Hypothyroidism type: unspecified Qualified Code(s): E03.9 - Hypothyroidism, unspecified - Time Spent With Patient Total time spent is greater than 50% in coordination of care (as documented) at patient's floor/unit and/or counseling patient: Greater than 35 minutes (40)
[2018-09-03 05:34] LABS: Hematocrit 38.1 % (35.3-44.9); Hemoglobin 12.3 g/dL (11.5-15.4); Mean Corpuscular HGB Conc 32.3 g/dL (31.6-35.5); Mean Corpuscular Hemoglobin 29.4 pg (28.0-33.3); Mean Corpuscular Volume 91.1 fL (83.0-100.0); Mean Platelet Volume 10.3 fL (9.4-12.4); Platelet Count 232 K/mcL (140-400); Red Blood Count 4.18 M/mcL (3.82-4.97); Red Cell Distribution Width 13.2 % (11.5-14.5)
[2018-09-03 05:54] LABS: BUN/Creatinine Ratio 22 (6-26); Blood Urea Nitrogen 18 mg/dL (8-23); Carbon Dioxide 26 mEq/L (23-29); Chloride 105 mEq/L (98-107); Glucose 98 mg/dL (70-105); Magnesium 2.2 mg/dL (1.6-2.6); Osmolality,Calculated 292 (280-300); Phosphorous 4.9 mg/dL (2.7-4.5); Potassium 3.7 mEq/L (3.5-5.1); Sodium 140 mEq/L (136-145); eGFR For Non-African Americans > 60 (> 60)
--- NOTE | 2018-09-03 08:32 | Neurology - Consult Note ---
<Rainer Ibarra - Last Filed: 09/03/18 14:44> Date of Encounter: 09/03/18 Time of Encounter: 08:25 Assessment and Plan (1) Vertigo Current Visit: Yes Status: Acute Patient with acute onset room spinning sensation when she woke up worse when she turns her eyes to the right. Patient has tried outpatient PT maneuvers in the past that have not helped with dizziness. CT head and CTA head revealed no acute intracranial abnormality. Patient's dizziness symptoms improved with Meclizine administration but have not yet resolved. Will give one time dose of Solumedrol 60mg IV x1 (patient reports previous aaggression with Prednisone or Dexamethasone use in the past). Start Ativan 0.5mg PO qHS MRI brain ordered. PT consulted for unsteady gait, recommend vestibular rehab upon discharge and ENT follow up (2) Nonruptured cerebral aneurysm, internal carotid artery Current Visit: No Status: Chronic CTA neck revealed no flow limiting stenosis or branch occlusion with a right infraclinoid ICA aneurysm. Findings were discussed with neurosurgery at [place] who recommended outpatient neurosurgical evaluation. (3) Hypocalcemia Current Visit: No Status: Acute (4) Hypoparathyroidism Current Visit: No Status: Chronic Qualifiers: Hypoparathyroidism type: other hypoparathyroidism Qualified Code(s): E20.8 - Other hypoparathyroidism (5) Hypothyroid Current Visit: No Status: Chronic Qualifiers: Hypothyroidism type: unspecified Qualified Code(s): E03.9 - Hypothyroidism, unspecified History of Present Illness Chief complaint: Dizziness HPI: Ms. Maldonado is a 68 year old female with a past medical history of CVA without residual deficits, DVT, hyperlipidemia, hypothyroidism, and hypoparathyroidism who presented to the ED secondary to worsening dizziness for the past 1 day. Patient described a room spinning sensation when she woke up worse when she turned her eyes to the right and her eyes blacked out for a few seconds prompting her to come to the ER. Patient denied associated loss of consciousness, ringing in her ears, headache, temporal pain, slurred speech, numbness, or tingling. Patient has tried PT maneuvers in the past that have mnot hlped with dizziness. In the ED, CT head and CTA head revealed no acute intracranial abnormality. CTA neck revealed no flow limiting stenosis or branch occlusion with a right infraclinoid ICA aneurysm. Findings were discussed with neurosurgery at [place] who recommended outpatient neurosurgical evaluation. Patient's dizziness symptoms improved with Mmeclizine administration but have not yet resolved. Neurology was consulted for further recommendations Past Med Surg Social Fam HX - Past Medical History Medical history: CVA, DVT, hyperlipidemia, thyroid disease Additional medical history: hypothyroidism. no deficits from prior to CVA Psychiatric history: no psych history - Past Surgical History Surgical History: thyroidectomy Additional surgical history: right ankle, left arm, parathyroidectomy - Social History Smoking Status: Never smoker Smokeless Tobacco Status: No Alcohol use: none Drug use: none - Family History Mother Living Status: Hx Family Cancer: Yes (melenoma ) Hx Family Endocrine Disorder: Yes (Diabetes) Father Living Status: Hx Family Cancer: Yes (Melanoma) Hx Family Endocrine Disorder: Yes (Diabetes) Medications and Allergies Levothyroxine [Synthroid] 75 mcg PO HS 10/09/17 [History] Omeprazole [PriLOSEC] 20 mg PO DAILY 10/09/17 [History] Simvastatin [Zocor] 40 mg PO DAILY 10/09/17 [History] Calcitriol [Rocaltrol] 0.25 mcg PO TID #120 capsule 10/11/17 [Rx] Calcium Carbonate/Vitamin D3 [Calcium 500 + Vit D Caplet] 1 tab PO TID 09/02/18 [History] LORazepam [Ativan] 0.5 mg PO HS PRN 10 Days #10 tablet 09/03/18 [Rx] Meclizine HCl [Verticalm] 25 mg PO TID PRN #30 tablet 09/03/18 [Rx] Allergy/AdvReac Type Severity Reaction Status Date / Time Amoxicillin [From Augmentin] AdvReac Vomiting Verified 10/09/17 14:34 clavulanic acid AdvReac Vomiting Verified 10/09/17 14:34 [From Augmentin] dexamethasone AdvReac Agitated Verified 10/09/17 14:34 gabapentin AdvReac See Verified 10/09/17 14:34 Comments morphine AdvReac Shakiness Verified 10/09/17 14:34 prednisone AdvReac See Verified 10/09/17 14:34 Comments All Systems: The remainder of the systems were reviewed and are negative - Constitutional Constitutional ROS IM: weight gain (85 lbs in 1 year), no anorexia, no chills, no fever(s), no headache(s), no lethargy, no weakness - Eyes Eyes: bilateral: loss of vision - Nose, Mouth, Throat Nose, mouth and throat: disequilibrium, dizziness, no abnormal hearing, no headache(s), no neck pain, no odynophagia, no sinus pressure - Cardiovascular Cardiovascular ROS IM: no chest pain, no palpitations - Respiratory Respiratory IM: no cough, no dyspnea, no wheezing - Gastrointestinal Gastrointestinal: no abdominal pain, no constipation, no nausea, no vomiting - Genitourinary Genitourinary ROS: no difficulty urinating, no urinary frequency, no urinary urgency - Musculoskeletal Musculoskeletal ROS IM: abnormal gait, no back pain, no myalgias, no neck pain, no numbness, no tingling - Integumentary Integumentary IM: no changing lesions, no new lesions - Neurological Neurological ROS: abnormal gait, disequilibrium, dizziness, lack of coordination, loss of vision, no abnormal hearing, no abnormal speech, no convulsions, no focal weakness, no frequent falls, no headache(s), no numbness, no syncope, no tingling, no weakness - Psychiatric Psychiatric general PM: no anxiety, no depression Physical Examination - Vital Signs Vital Signs: Initial Vital Signs Temp Pulse Resp BP Pulse Ox 97.8 F 107 26 144/54 99 09/02/18 14:16 09/02/18 14:16 09/02/18 14:16 09/02/18 14:16 09/02/18 14:16 - Constitutional General appearance: comfortable (obese) - Neurologic Sensorimotor examination: intact Detailed motor examination: grossly full strength in all extremities, full strength in all major muscle groups Motor examination - right side: 3/5: 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), 5/5: deltoids, biceps, triceps, wrist flexion, wrist extension, hip flexors, tibialis Anterior, quadriceps, toe extension (EHL), plantarflexion Motor examination - left side: 5/5: deltoids, biceps, triceps, wrist flexion, wrist extension, hip flexors, patient care technician, quadriceps, tibialis Anterior, toe extension (EHL), plantarflexion Detailed sensory examination: intact, light touch Reflex and gait examination: intact Reflexes: Biceps: 2+, Triceps: 2+, Brachioradialis: 2+, Patella: 2+, Achilles: 2+ Mental Status Examination: awake, alert, oriented to person, oriented to place, oriented to time, follows commands appropriately, answers questions appropriately, no agnosia, no aphasia, no aproxia Cranial nerve examination: PERRL, EOMI (diffficulty looking to the right), visual willis intact, sensory to face intact, mastication intact, no facial asymmetry is present, no dysarthria, hearing is intact symmetrically, flexes SCM and trapezius muscles symmetrically with full power, tongue protrudes midline, no atrophy or facial fasiculations present Cerebellar examination: no dysmetria, performs finger to nose and heel to sotelo symmetrically without ataxia, no gait ataxia, no truncal ataxia, no difficulty with rapid alternating movements Results - Laboratory Findings CBC and BMP: 09/03/18 05:05 09/03/18 05:05 Abnormal lab findings: Abnormal lab results Calcium 8.0 mg/dL (8.6-10.3) L 09/03/18 05:05 Phosphorus 4.9 mg/dL (2.7-4.5) H 09/03/18 05:05 Consult Discharge Plan - Plan Referrals: Trixie Robledo DO [Non-Partnered Physician] - (An appointment has been requested. The office will contact you at home with an appointment. ) Mark Mariee MD [Primary Care Provider] - 09/07/18 1:30 pm Prescriptions: LORazepam [Ativan] 0.5 mg PO HS PRN 10 Days #10 tablet PRN Reason: Vertigo Meclizine HCl [Verticalm] 25 mg PO TID PRN #30 tablet PRN Reason: Vertigo <Leora Chung I - Last Filed: 09/03/18 16:08> Date of Encounter: 09/03/18 Assessment and Plan (1) Vertigo Current Visit: Yes Status: Acute Pt was seen and examined, my medical decision was reviewed with the Resident Physician, I agree with the documented findings, disposition and treatment plas as described except to the extent set forth below. This patient was seem to be quite symptomatic with peripheral vertigo we will get an MRI of the brain to exclude any intracranial etiology of her symptoms CT of the head and CTA in March of the head is already been negative We will try her on dose of steroids along with scheduled doses of Ativan to see if it helps her symptoms also increase the fluid intake Patient probably would benefit from outpatient vestibular rehabilitation if the MRI of the brain is negative Leora Chung MD History of Present Illness HPI: Ms. Maldonado is a 68 year old female All Systems: The remainder of the systems were reviewed and are negative Physical Examination - Vital Signs Vital Signs: Initial Vital Signs Temp Pulse Resp BP Pulse Ox 97.8 F 107 26 144/54 99 09/02/18 14:16 09/02/18 14:16 09/02/18 14:16 09/02/18 14:16 09/02/18 14:16 - Exam Exam: GENERAL: Comfortable in no acute distress HEENT: Normal LUNGS: CTA HEART: RRR, S1 S2 Audible, no murmur EXTREMITIES: No Pedal edema. DETAILED NEUROLOGICAL EXAMINATION: MENTAL STATUS: Oriented to person, place, date and situation. Memory: knows the President, Aware of recent events Recent Memory Intact, Attention span is normal Cranial Nerve Examination: CN - II: Visual Acuity, Field of Vision Normal, Fundus examination: No disk edema, Pupils- size shape reaction to light and accommodation: All normal. CN III, IV, : External ocular movements were intact, Pupils were reactive, Nodrooping of the eyelids CN V: Sensation over the face to light touch and pinprick all normal. Corneal reflexes not tested, jaw jerk normal. CN VII: No facial asymmetry, no flattening of nasolabial folds, no difficulty in closing the eyes, no loss of forehead wrinkles, no difficulty in eye-closure, frowning raising eyebrows. CNVIII: No significant hearing loss CN IX, X: Uvula centralized not deviated, Gag reflex: Not tested CN X1: Sternocleidomastoid, trapezius, normal or evidence of any weakness. CN X11: No Dysarthria, no wasting or fibrilation f tongue muscles, no deviation, tongue muscle strength normal. Motor examination: No hypertrophy, tone was normal, power grade 0-5 Upper limbs Proximal- No difficulty in lifting the arms above the head. Distal- No weakness in distal muscles On formal testing 5/5 all over Lower limbs On formal testing 5/5 all over Coordination: [id number] normal. Target pursuit normal finger tapping normal, Rapid alternating moment of wrist normal Sensory system: Superficial sensations- Touch normal. Pain- Pinprick, Temperature all normal, Deep sensation normal, Joint position sense normal. Cortical sensation, Tactile discrimination, localization and extinction all normal. Deep tendon reflexes. Symmetrical bilateral, No evidence of Babinski. No sign of meningeal irritation Gait Examination: Deferred - Constitutional General appearance: comfortable Results - Laboratory Findings CBC and BMP: 09/03/18 05:05 09/03/18 05:05 Abnormal lab findings: Abnormal lab results Calcium 8.0 mg/dL (8.6-10.3) L 09/03/18 05:05 Phosphorus 4.9 mg/dL (2.7-4.5) H 09/03/18 05:05
[2018-09-03] MEDS ORDERED: methylPREDNISolone 125 MG/2 ML VIAL IVP ONE (13:56)
[2018-09-03] MEDS ORDERED: 0.9 % Sodium Chloride 1,000 ML IVC SCH (14:00)
--- NOTE | 2018-09-03 15:29 | Discharge Summary ---
- NOTES TO OUTPATIENT PROVIDER Notes to Outpatient Provider: Follow up with PCP in one week. Follow with the neurosurgeon @ [facility] in 2-3 weeks for your Rt infraclinoid ICA aneurysm. Please follow up with ENT for vestibular therapy Orders not resulted at time of discharge: Pending orders 09/03/18 10:21 MR head/brain wo con [MR] Routine Date of Encounter: 09/03/18 Time of Encounter: 15:27 - Discharge Diagnosis (1) Positional vertigo Priority: Primary Status: Acute (2) Dizziness Priority: Primary Status: Acute (3) GERD (gastroesophageal reflux disease) Priority: Secondary Status: Chronic Qualifiers: Esophagitis presence: without esophagitis Qualified Code(s): K21.9 - Gastro-esophageal reflux disease without esophagitis (4) Hypothyroid Priority: Secondary Status: Chronic Qualifiers: Hypothyroidism type: unspecified Qualified Code(s): E03.9 - Hypothyroidism, unspecified (5) Hypoparathyroidism Priority: Secondary Status: Chronic Qualifiers: Hypoparathyroidism type: other hypoparathyroidism Qualified Code(s): E20.8 - Other hypoparathyroidism (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 Maldonado is a 68 year old female PMH of hypothyroidism, hypoparathyriodism, HLD and auditory never abnormality patient presented to the ED due to dizziness abd vertigo. Patient reported that she started experiencing dizziness spells which she described as the room spinning around and have a tendency to fall on her Rt side. Patient was admitted in the hospital and started her on meclizine 25 mg TID. Patient stated her symptoms improved today. Patient was evaluated by neuologist who recommend to give her Solumedrol 60mg iV x 1 dose, Ativan QHS and Meclizine PRN. She scheduled for MRI today to r/o any intracranial pathology. If her MRI looks okay will discharge her home in a stable condition later tonight. She did have an incidental finding of Rt infraclinoid ICA aneurysm, for which she need to f/u with Neurosurgery as an out pt. - Time Spent with Patient Total time spent providing and/or coordinating discharge services: - Discharge Medications Prescriptions: LORazepam [Ativan] 0.5 mg PO HS PRN 10 Days #10 tablet PRN Reason: Vertigo Meclizine HCl [Verticalm] 25 mg PO TID PRN #30 tablet PRN Reason: Vertigo Home Medications: Levothyroxine [Synthroid] 75 mcg PO HS 10/09/17 [History] Omeprazole [PriLOSEC] 20 mg PO DAILY 10/09/17 [History] Simvastatin [Zocor] 40 mg PO DAILY 10/09/17 [History] Calcitriol [Rocaltrol] 0.25 mcg PO TID #120 capsule 10/11/17 [Rx] Calcium Carbonate/Vitamin D3 [Calcium 500 + Vit D Caplet] 1 tab PO TID 09/02/18 [History] LORazepam [Ativan] 0.5 mg PO HS PRN 10 Days #10 tablet 09/03/18 [Rx] Meclizine HCl [Verticalm] 25 mg PO TID PRN #30 tablet 09/03/18 [Rx] Allergies/Adverse Reactions: Allergy/AdvReac Type Severity Reaction Status Date / Time Amoxicillin [From Augmentin] AdvReac Vomiting Verified 10/09/17 14:34 clavulanic acid AdvReac Vomiting Verified 10/09/17 14:34 [From Augmentin] dexamethasone AdvReac Agitated Verified 10/09/17 14:34 gabapentin AdvReac See Verified 10/09/17 14:34 Comments morphine AdvReac Shakiness Verified 10/09/17 14:34 prednisone AdvReac See Verified 10/09/17 14:34 Comments Date of admission: 09/02/18 18:16 Primary care physician: Mark Mariee MD Consults: 09/02/18 17:35 Consult to Neurology [CONS] Stat Consulting Provider: Neurology [facility] Reason for Consult: dizziness Call Completed: No 09/03/18 10:33 Consult to Physical Therapy [CONS] Routine Comment: Evaluate, develop and implement POC Reason for Consult: unsteady gait, dizziness, right hand Does patient have active BEDREST order?: No Is patient medically & hemodynamically stable?: Yes Patient assessed for mobility or mobilized this visit?: No - Constitutional Vitals: Temp Pulse Resp BP Pulse Ox 98.3 F 81 15 121/79 93 09/03/18 15:22 09/03/18 15:22 09/03/18 15:22 09/03/18 15:22 09/03/18 15:22 General appearance: Present: cooperative, A&O X 3, answers questions appropriately Exam: Gen: Alert, awake, Oriented to time,place and person Chest: Diminished breath sounds B/L, No wheezing, No crackles, No rales Heart: S1S2+ RRR No murmurs Abd: Soft, NT, BS +, No organomegaly Ext: No edema, pulses are palpable, No calf tenderness Neuro : Benign findings Skin: No rash. - Patient Status Disposition: Home, Self-Care Condition: Good Overall status at discharge: patient is back to baseline - Discharge Instructions Follow Up With: Mark Mariee MD [Primary Care Provider] - 09/07/18 1:30 pm - Diet and Activity Activity: increase activity as tolerated Diet: low salt diet
--- NOTE | 2018-09-03 16:52 | Electrocardiograph Report ---
[place] [id number] Test Date: 2018-09-02 Pat Name: Marlene Maldonado Department: EXAMC1 Room: 3B32 Gender: F Ordinary Seaman: : 1950 Requested By: Ryan Maldonado Order Number: [id number] Reading MD: Trang Hunter Measurements Intervals [place] Rate: 96 P: 56 VA: 148 QRS: -2 QRSD: 101 T: 48 QT: 394 QTc: 504 Interpretive Statements Sinus rhythm Low voltage, precordial leads RSR' in V1 or V2, right VCD or RVH Borderline T abnormalities, anterior leads Prolonged QT interval Electronically Signed On 09-03-2018 16:51:01 EST by Trang Hunter
[2018-09-03 19:21] VITALS: BP 148/92
[2018-09-03] MEDS ORDERED: *HR* LORazepam 0.5 MG TABLET PO SCH (21:00)
== END 2018-09-03 19:50 | disposition home or self-care (01) ==
LOC: EMEROOARM 14:12 → 3BNU 14:12 → SUATTDRO 18:16 → 3BNU 18:49
PROVIDERS: ADMIT General Practice; ATTEND Family Medicine

== ENCOUNTER 2018-11-03 01:27 | Observation (INO) ==
--- NOTE | 2018-11-03 01:49 | Emergency Department Note ---
Disposition Clinical Impression: Vertigo Disposition: Admitted As Inpatient Condition: Fair Time of Disposition: 06:01 Dizziness HPI - General Chief Complaint: ED Dizziness Stated Complaint: dizziness Time Seen by Provider: 11/03/18 01:44 Source: patient, EMS Limitations: no limitations Nursing Notes Reviewed: Yes Vital Signs Reviewed: Yes - History of Present Illness HPI Narrative: Patient is a 68-year-old female presenting with dizziness. Patient has history of BPPV and ICA aneurysm. Patient was recently admitted to the hospital in September for similar symptoms at that point in time she had an MRI performed which showed incidental aneurysm. She states she was supposed to follow-up with neurosurgery, however she has been unable to make an appointment. She states that she has been taking meclizine at home, however that this has not been working. Patient also has been going to physical therapy for this. Patient states that yesterday she began to have some pressure in her head, which was a new symptom for her, however today she states that when getting up this morning she went her head from the left of the right and began to have intense vertigo symptoms. She states that she feels though the room is spinning and she is not able to get this to stop. Patient states she has some nausea without vomiting. No fevers or chills. She states this feels similar to her typical BPPV however she does not typically have head pressure with this. She states she is very concerned as she currently lives alone at home. - Related Data Home Medications Medication Instructions Recorded Confirmed Levothyroxine [Synthroid] 75 mcg PO HS 10/09/17 09/02/18 Omeprazole [PriLOSEC] 20 mg PO DAILY 10/09/17 09/02/18 Simvastatin [Zocor] 40 mg PO DAILY 10/09/17 09/02/18 Calcium Carbonate/Vitamin D3 1 tab PO TID 09/02/18 09/02/18 [Calcium 500 + Vit D Caplet] Previous Rx's Medication Instructions Recorded Calcitriol [Rocaltrol] 0.25 mcg PO TID #120 capsule 10/11/17 Meclizine HCl [Verticalm] 25 mg PO TID PRN #30 tablet 09/03/18 Allergies Allergy/AdvReac Type Severity Reaction Status Date / Time Amoxicillin [From Augmentin] AdvReac Vomiting Verified 10/09/17 14:34 clavulanic acid AdvReac Vomiting Verified 10/09/17 14:34 [From Augmentin] dexamethasone AdvReac Agitated Verified 10/09/17 14:34 gabapentin AdvReac See Verified 10/09/17 14:34 Comments morphine AdvReac Shakiness Verified 10/09/17 14:34 prednisone AdvReac See Verified 10/09/17 14:34 Comments All systems ED: reviewed and negative except as stated. Review of Systems: As Per HPI Constitutional: Denies: fever, chills, weakness, weight change ENT ED: Denies: ear pain, throat pain, dental pain, hearing loss, epistaxis, congestion, dysphagia Cardiovascular: Denies: chest pain, palpitations Respiratory: Denies: cough, dyspnea Gastrointestinal: Denies: abdominal pain, nausea, vomiting Genitourinary: Denies: urgency, dysuria, frequency Musculoskeletal: Denies: back pain Integumentary: Denies: rash Neurological: Reports: headache, vertigo. Denies: weakness, numbness, paresthesias, confusion Endocrine: Denies: fatigue Past Medical History - Past Medical History Attestation: Yes The following information was validated with the patient. Source: patient Medical history: Reports: CVA, DVT, GERD, hyperlipidemia, thyroid disease, other Surgical history: Reports: thyroidectomy Psychiatric history: Reports: no psych history - Social History Smoking Status: Never smoker Smokeless Tobacco Status: No Alcohol use: Reports: none Drug use: Reports: none Physical Exam - General Limitations: no limitations General appearance: alert, anxious, other (Patient appears uncomfortable in the bed, she does have her eye shut constantly holding her head due to pressure, her arms are shaking she states that she is uncomfortable) - Head Head exam: atraumatic, normocephalic, normal inspection - Eye Eye exam: Present: normal appearance, PERRL, EOMI - ENT ENT exam: normal exam, normal oropharynx, mucous membranes moist - Neck Neck exam: Present: normal inspection, full ROM, trachea midline - Chest Chest inspection: Present: normal inspection, symmetric chest wall rise - Respiratory Respiratory exam: Present: normal lung sounds bilaterally. Absent: respiratory distress, wheezes - Cardiovascular Cardiovascular exam: Present: regular rate, normal rhythm, normal heart sounds - Abdominal Exam Abdominal exam: Present: soft, Non-Tender. Absent: tenderness, distention, guarding, rebound, rigidity - Extremities Exam Extremities exam: Present: normal inspection, full ROM. Absent: tenderness, pedal edema - Expanded Lower Extremity Exam Neurovascular/Tendon exam: Absent: motor deficit, sensory deficit, tendon deficit - Back Exam Back exam: Present: normal inspection, full ROM. Absent: tenderness - Neurological Exam Neurological exam: Present: alert, oriented X3 - Psychiatric Psychiatric exam: Present: normal affect, normal mood - Skin Skin exam: Present: warm, dry. Absent: rash Course Vital Signs Temperature 97.7 F 11/03/18 01:36 Pulse Rate 86 11/03/18 01:36 Respiratory Rate 11 11/03/18 01:36 Blood Pressure 148/87 11/03/18 01:36 O2 Sat by Pulse Oximetry 99 11/03/18 01:36 Temperature 97.7 F 11/03/18 01:36 Pulse Rate 84 11/03/18 04:50 Respiratory Rate 16 11/03/18 04:50 Blood Pressure 137/76 11/03/18 04:50 O2 Sat by Pulse Oximetry 98 11/03/18 04:50 Oxygen Delivery Oxygen Delivery Room Air Dizziness - MDM Narrative Medical decision making narrative: Patient is a 68-year-old female presenting to the ER with dizziness. Patient's history BPPV as well as a intracranial aneurysm. Patient has been going to physical therapy for the BPPV without resolution. She states that approximately one day ago she began having significant increase in her vertigo symptoms. She states it feels like her typical vertigo other than the fact that she also has had pressure. 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 Patient denies any change from baseline. She is afebrile and normotensive, she has regular rate and rhythm, with normal neurovascular examination, other than chronic changes. CBC as well as a BMP and further laboratory work for reveals unremarkable and all within normal limits. EKG shows no acute ischemic changes. CTA of the head and neck shows continued 3 mm intracranial aneurysm, this appears unchanged from prior MRI that was performed. Appears to be stable. Patient was given meclizine with initial improvement, however the patient did get up to walk to the restroom, and while in the restroom, she had significant increase in symptoms, she had to be wheelchair back to her room due to inability to ambulate. I did discuss this with the patient, at this point in time, she states that she feels unsafe to go back home as she does live alone as the patient is unable to ambulate feels though it is appropriate at this point to admit the patient for symptom management. I did discuss this patient with the hospitalist and she has been accepted for further evaluation and further recommendations. - Medical Records Medical records reviewed: Yes I reviewed the patient's medical records. - Lab Data Lab results reviewed: Yes I reviewed the patient's lab results. Result diagrams: 11/03/18 02:50 11/03/18 02:50 Lab Results 11/03/18 11/03/18 11/03/18 Range/Units 02:50 02:50 04:57 WBC 7.5 (4.3-11.1) K/mcL RBC 4.35 (3.82-4.97) M/mcL Hgb 13.0 (11.5-15.4) g/dL Hct 39.1 (35.3-44.9) % MCV 89.9 (83.0-100.0) fL MCH 29.9 (28.0-33.3) pg MCHC 33.2 (31.6-35.5) g/dL RDW 13.1 (11.5-14.5) % Plt Count 198 (140-400) K/mcL MPV 10.8 (9.4-12.4) fL Immature Gran % 0.3 (0-4) % Seg Neutrophils % 73.8 % Lymphocytes % 16.0 % Monocytes % 7.0 % Eosinophils % 2.4 % Basophils % 0.5 % Neutrophils # 5.6 (1.6-8.9) K/mcL Lymphocytes # 1.2 (0.6-4.6) K/mcL Monocytes # 0.5 (0.0-1.3) K/mcL Eosinophils # 0.2 (0.0-0.6) K/mcL Basophils # 0.0 (0.0-0.2) K/mcL Sodium 139 (136-145) mEq/L Potassium 3.7 (3.5-5.1) mEq/L Chloride 102 (98-107) mEq/L Carbon Dioxide 24 (23-29) mEq/L BUN 15 (8-23) mg/dL Creatinine 0.90 (0.60-1.20) mg/dL Est GFR ( Amer) > 60 (> 60) Est GFR (Non-Af Amer) > 60 (> 60) BUN/Creatinine Ratio 17 (6-26) Glucose 125 H (70-105) mg/dL Calculated Osmolality 290 (280-300) Calcium 8.5 L (8.6-10.3) mg/dL Urine Color Yellow (Yellow) Urine Clarity Clear (Clear) Urine pH 6.0 (5.0-8.0) pH Units Ur Specific [place] > 1.030 H (1.010-1.025) Urine Protein Negative (Neg-Trace) mg/dL Urine Glucose (UA) Normal (Normal) mg/dL Urine Ketones Negative (Negative) mg/dL Urine Blood Negative (Negative) Urine Nitrite Negative (Negative) Urine Bilirubin Negative (Negative) Urine Urobilinogen Normal (Normal) mg/dL Ur Leukocyte Esterase Moderate H (Negative) Urine Microscopic RBC 0-3 (0-3) per hpf Urine Microscopic WBC 15-30 H (0-3) per hpf Ur Squamous Epith Cells Many H (None-Few) per lpf Urine Bacteria None Seen (None-Few) per hpf Hyaline Casts None Seen (None-Few) per lpf Ur Culture Indicated? NO. A (NO) - Radiology Data Radiology results reviewed: Yes I reviewed the patient's radiology results. Chest X-Ray 11/03/18 02:24 IMPRESSION: No acute findings. D/ / Wu Bridges / Wu Bridges Interpreting Provider: Wu Bridges Head CTA 11/03/18 02:25 IMPRESSION: Noncontrast CT head without acute intracranial abnormality. Intracranial right ICA, paraclinoid 3 mm broad-based aneurysm. This could be confirmed by catheter directed angiography if intervention is contemplated. Otherwise, CTA of the head and neck without acute arterial abnormality. D/ / Marcos Perez / Marcos Perez Interpreting Provider: Marcos Perez Neck CTA 11/03/18 02:25 IMPRESSION: Noncontrast CT head without acute intracranial abnormality. Intracranial right ICA, paraclinoid 3 mm broad-based aneurysm. This could be confirmed by catheter directed angiography if intervention is contemplated. Otherwise, CTA of the head and neck without acute arterial abnormality. D/ / Marcos Perez / Marcos Perez Interpreting Provider: Marcos Perez - EKG Data EKG attestation: Yes I reviewed and interpreted this EKG. EKG results narrative: EKG performed at 235 with ventricular rate of 84, regular rhythm, normal axis, no ST segment elevation or depression, low voltage throughout. No ischemic changes, appears unchanged from previous which was performed in Sep 2018 Cristina - Cristina Situation: Demographics, MOA Background: Presenting Complaint, Relevant PMH, Meds, & Allergies Assessment: Vital Signs, Course and respsone to treatment, Exam Concerns, Patien t/Family Expectation, Pertinant Lab Results, Outstanding Labs Recommendation: Barrier(s) to disposition, Recommendation based on pending studies, treatments, or consults Cristina Report Given to: hospitalist Cristina Repor Time: 06:01 (accepted)
[2018-11-03] MEDS ORDERED: 0.9 % Sodium Chloride 1,000 ML IVC ONE (02:24)
[2018-11-03] MEDS ORDERED: Ondansetron 4 MG/2 ML VIAL IVP ONE (02:24)
[2018-11-03] MEDS ORDERED: Isovue-370 500 ML BOTTLE IVP ONE (02:25)
[2018-11-03 03:06] LABS: Basophils % 0.5 %; Eosinophils # 0.2 K/mcL (0.0-0.6); Eosinophils % 2.4 %; Hematocrit 39.1 % (35.3-44.9); Immature Granulocytes % 0.3 % (0-4); Lymphocytes # 1.2 K/mcL (0.6-4.6); Mean Corpuscular HGB Conc 33.2 g/dL (31.6-35.5); Mean Corpuscular Hemoglobin 29.9 pg (28.0-33.3); Mean Corpuscular Volume 89.9 fL (83.0-100.0); Mean Platelet Volume 10.8 fL (9.4-12.4); Monocytes # 0.5 K/mcL (0.0-1.3); Neutrophils # 5.6 K/mcL (1.6-8.9); Platelet Count 198 K/mcL (140-400); Red Blood Count 4.35 M/mcL (3.82-4.97); Red Cell Distribution Width 13.1 % (11.5-14.5); Segmented Neutrophils % 73.8 %
[2018-11-03 03:18] LABS: BUN/Creatinine Ratio 17 (6-26); Blood Urea Nitrogen 15 mg/dL (8-23); Calcium 8.5 mg/dL (8.6-10.3); Carbon Dioxide 24 mEq/L (23-29); Chloride 102 mEq/L (98-107); Glucose 125 mg/dL (70-105); Osmolality,Calculated 290 (280-300); Potassium 3.7 mEq/L (3.5-5.1); Sodium 139 mEq/L (136-145); eGFR For Non-African Americans > 60 (> 60)
[2018-11-03 05:08] LABS: Bilirubin,Urine Negative (Negative); Blood,Urine Negative (Negative); Clarity,Urine Clear (Clear); Color,Urine Yellow (Yellow); Glucose,Urine (UA) Normal (Normal); Ketones,Urine Negative (Negative); Leukocyte Esterase,Urine Moderate (Negative); Nitrite,Urine Negative (Negative); Protein,Urine Negative (Neg-Trace); Specific Gravity,Urine > 1.030 (1.010-1.025); Urobilinogen,Urine Normal (Normal)
[2018-11-03 05:11] LABS: Bacteria,Urine None Seen per hpf (None-Few); Hyaline Casts,Urine None Seen per lpf (None-Few); RBC,Urine 0-3 per hpf (0-3); Squamous Epithelial Cell,Urine Many per lpf (None-Few); WBC,Urine 15-30 per hpf (0-3)
--- NOTE | 2018-11-03 06:23 | Emergency Department Note ---
Disposition Clinical Impression: Vertigo Disposition: Admitted As Inpatient Condition: Fair General Adult HPI - General Chief complaint: ED Dizziness Stated complaint: dizziness Time Seen by Provider: 11/03/18 01:44 Source: patient, EMS Limitations: no limitations Nursing Notes Reviewed: Yes Vital Signs Reviewed: Yes - History of Present Illness Pain Scale: 0 - Related Data Home Medications Medication Instructions Recorded Confirmed Levothyroxine [Synthroid] 75 mcg PO HS 10/09/17 09/02/18 Omeprazole [PriLOSEC] 20 mg PO DAILY 10/09/17 09/02/18 Simvastatin [Zocor] 40 mg PO DAILY 10/09/17 09/02/18 Calcium Carbonate/Vitamin D3 1 tab PO TID 09/02/18 09/02/18 [Calcium 500 + Vit D Caplet] Previous Rx's Medication Instructions Recorded Calcitriol [Rocaltrol] 0.25 mcg PO TID #120 capsule 10/11/17 Meclizine HCl [Verticalm] 25 mg PO TID PRN #30 tablet 09/03/18 Allergies Allergy/AdvReac Type Severity Reaction Status Date / Time Amoxicillin [From Augmentin] AdvReac Vomiting Verified 10/09/17 14:34 clavulanic acid AdvReac Vomiting Verified 10/09/17 14:34 [From Augmentin] dexamethasone AdvReac Agitated Verified 10/09/17 14:34 gabapentin AdvReac See Verified 10/09/17 14:34 Comments morphine AdvReac Shakiness Verified 10/09/17 14:34 prednisone AdvReac See Verified 10/09/17 14:34 Comments Constitutional: Denies: fever, chills, weakness, weight change ENT ED: Denies: ear pain, throat pain, dental pain, hearing loss, epistaxis, co ngestion, dysphagia Cardiovascular: Denies: chest pain, palpitations Respiratory: Denies: cough, dyspnea Gastrointestinal: Denies: abdominal pain, nausea, vomiting Genitourinary: Denies: urgency, dysuria, frequency Musculoskeletal: Denies: back pain Integumentary: Denies: rash Neurological: Reports: headache, vertigo. Denies: weakness, numbness, paresthesias, confusion Endocrine: Denies: fatigue Past Medical History - Past Medical History Medical history: Reports: CVA, DVT, GERD, hyperlipidemia, thyroid disease, other Surgical history: Reports: thyroidectomy Psychiatric history: Reports: no psych history - Social History Smoking Status: Never smoker Smokeless Tobacco Status: No Alcohol use: Reports: none Drug use: Reports: none Physical Exam - General Limitations: no limitations General appearance: alert, anxious, other (Patient appears uncomfortable in the bed, she does have her eye shut constantly holding her head due to pressure, her arms are shaking she states that she is uncomfortable) Course Vital Signs Temperature 97.7 F 11/03/18 01:36 Pulse Rate 86 11/03/18 01:36 Respiratory Rate 11 11/03/18 01:36 Blood Pressure 148/87 11/03/18 01:36 O2 Sat by Pulse Oximetry 99 11/03/18 01:36 Temperature 97.7 F 11/03/18 01:36 Pulse Rate 84 11/03/18 04:50 Respiratory Rate 16 11/03/18 04:50 Blood Pressure 137/76 11/03/18 04:50 O2 Sat by Pulse Oximetry 98 11/03/18 04:50 Oxygen Delivery Oxygen Delivery Room Air Medical Decision Making - Medical Records Medical records reviewed: Yes I reviewed the patient's medical records. - Lab Data Lab results reviewed: Yes I reviewed the patient's lab results. Result diagrams: 11/03/18 02:50 11/03/18 02:50 Lab Results 11/03/18 11/03/18 11/03/18 Range/Units 02:50 02:50 04:57 WBC 7.5 (4.3-11.1) K/mcL RBC 4.35 (3.82-4.97) M/mcL Hgb 13.0 (11.5-15.4) g/dL Hct 39.1 (35.3-44.9) % MCV 89.9 (83.0-100.0) fL MCH 29.9 (28.0-33.3) pg MCHC 33.2 (31.6-35.5) g/dL RDW 13.1 (11.5-14.5) % Plt Count 198 (140-400) K/mcL MPV 10.8 (9.4-12.4) fL Immature Gran % 0.3 (0-4) % Seg Neutrophils % 73.8 % Lymphocytes % 16.0 % Monocytes % 7.0 % Eosinophils % 2.4 % Basophils % 0.5 % Neutrophils # 5.6 (1.6-8.9) K/mcL Lymphocytes # 1.2 (0.6-4.6) K/mcL Monocytes # 0.5 (0.0-1.3) K/mcL Eosinophils # 0.2 (0.0-0.6) K/mcL Basophils # 0.0 (0.0-0.2) K/mcL Sodium 139 (136-145) mEq/L Potassium 3.7 (3.5-5.1) mEq/L Chloride 102 (98-107) mEq/L Carbon Dioxide 24 (23-29) mEq/L BUN 15 (8-23) mg/dL Creatinine 0.90 (0.60-1.20) mg/dL Est GFR ( Amer) > 60 (> 60) Est GFR (Non-Af Amer) > 60 (> 60) BUN/Creatinine Ratio 17 (6-26) Glucose 125 H (70-105) mg/dL Calculated Osmolality 290 (280-300) Calcium 8.5 L (8.6-10.3) mg/dL Urine Color Yellow (Yellow) Urine Clarity Clear (Clear) Urine pH 6.0 (5.0-8.0) pH Units Ur Specific [place] > 1.030 H (1.010-1.025) Urine Protein Negative (Neg-Trace) mg/dL Urine Glucose (UA) Normal (Normal) mg/dL Urine Ketones Negative (Negative) mg/dL Urine Blood Negative (Negative) Urine Nitrite Negative (Negative) Urine Bilirubin Negative (Negative) Urine Urobilinogen Normal (Normal) mg/dL Ur Leukocyte Esterase Moderate H (Negative) Urine Microscopic RBC 0-3 (0-3) per hpf Urine Microscopic WBC 15-30 H (0-3) per hpf Ur Squamous Epith Cells Many H (None-Few) per lpf Urine Bacteria None Seen (None-Few) per hpf Hyaline Casts None Seen (None-Few) per lpf Ur Culture Indicated? NO. A (NO) - Radiology Data Radiology results reviewed: Yes I reviewed the patient's radiology results. Chest X-Ray 11/03/18 02:24 IMPRESSION: No acute findings. D/ / Wu Bridges / Wu Bridges Interpreting Provider: Wu Bridges Head CTA 11/03/18 02:25 IMPRESSION: Noncontrast CT head without acute intracranial abnormality. Intracranial right ICA, paraclinoid 3 mm broad-based aneurysm. This could be confirmed by catheter directed angiography if intervention is contemplated. Otherwise, CTA of the head and neck without acute arterial abnormality. D/ / Marcos Perez / Marcos Perez Interpreting Provider: Marcos Perez Neck CTA 11/03/18 02:25 IMPRESSION: Noncontrast CT head without acute intracranial abnormality. Intracranial right ICA, paraclinoid 3 mm broad-based aneurysm. This could be confirmed by catheter directed angiography if intervention is contemplated. Otherwise, CTA of the head and neck without acute arterial abnormality. D/ / Marcos Perez / Marcos Perez Interpreting Provider: Marcos Perez - EKG Data EKG #1 EKG attestation: Yes I reviewed and interpreted this EKG. EKG results narrative: EKG shows a normal sinus rhythm with ventricular rate of 84. Incomplete right bundle branch block. Low voltage in precordial leads. Nonspecific T-wave abnormality. No significant change from prior EKG dated 09/02/2018. Attestation Statement - Attestation Attestation: I, Mikel Hernandez MD, personally evaluated this patient and discussed their management with the resident physician. I reviewed the resident's note and agree with the documented findings, medical decision making, and plan of care. 68-year-old female persisted emergency department by EMS with a complaint of severe vertigo. Patient has a prior history of vertigo. She states that yesterday morning when she awoke that she felt a little dizzy but then it seemed to resolve. She was okay throughout the day but then about midnight tonight she got up to go to the bathroom and she had acute onset of severe vertigo with the room spinning and moving and she fell. She denies any injury from the fall. She also however complains of a lot of pressure in the top and right side of her head. She has a history of a small aneurysm which was found recently on an MRI. On examination patient is a well-developed obese elderly female in no acute distress. She is alert and oriented 3. There is no cyanosis or diaphoresis. Breath sounds are clear and equal bilaterally. Heart regular rate and rhythm. Abdomen soft and nontender with normal bowel sounds. No gross focal neurological deficits. Labs reviewed. EKG shows normal sinus rhythm with rate of 84. Incomplete right bundle branch block. CTA of the neck and CTA of the head with and without contrast showed no acute abnormality. It again showed a 3 mm aneurysm. Patient received meclizine here in the department and was observed. She did feel some better but when she attempted to ambulate to the bathroom she became extremely dizzy again and had to be helped back to her bed and wheelchair. The hospitalist, Dr. Taylor, was consulted and accepted admission of the patient.
[2018-11-03] MEDS ORDERED: Naloxone 0.4 MG/ML INJ IVP PRN (07:30)
[2018-11-03] MEDS ORDERED: MethylPREDNISolone 40 MG/ML VIAL IVP ONE (07:32)
[2018-11-03] MEDS ORDERED: *HR* LORazepam 0.5 MG TABLET PO PRN (07:33)
--- NOTE | 2018-11-03 08:42 | Internal Med History&Physical ---
Date of Encounter: 11/03/18 Time of Encounter: 08:30 Internal Medicine - H&P: HPI Chief complaint: Severe dizziness of 24hrs duration History of present illness: Ms. Maldonado is a 68 year old female with pmh of CVA, DVT, GERD, dyslipidemia presenting with complaints of severe dizziness of 1 day duration and sensation of room spinning. She was recently discharged for similar complaints in the past 1 month. She describes her discomfort as a pressure in her head when she turns her head to the right side quick, and things start to go black. Associated with nausea and vomiting. She first started experiencing this a month ago. She was given solumedrol and antivert on her last discharge and symptoms gradually resolved over 2 weeks but they have since returned. euro recommended ENT follow upfor vestibular rehba on her last discharge. She denies any other acute complaints In the, Er, she was given antivert and fluids, a CT head showed no acute abnormalities other than a 3mm infraclinoid aneurysm which was noted on last MRI and she is being admitted for further management Past Med Surg Social Fam HX - Past Medical History Medical history: CVA, DVT, GERD, hyperlipidemia, thyroid disease, other Additional medical history: lymphoma Psychiatric history: no psych history - Past Surgical History Surgical History: thyroidectomy Additional surgical history: right ankle, left arm, parathyroidectomy - Social History Smoking Status: Never smoker Smokeless Tobacco Status: No Alcohol use: none Drug use: none - Family History Mother Living Status: Hx Family Cancer: Yes (melenoma ) Hx Family Endocrine Disorder: Yes (Diabetes) Father Living Status: Hx Family Cancer: Yes (Melanoma) Hx Family Endocrine Disorder: Yes (Diabetes) Internal Medicine - H&P: Meds Levothyroxine [Synthroid] 75 mcg PO HS 10/09/17 [History] Omeprazole [PriLOSEC] 20 mg PO DAILY 10/09/17 [History] Simvastatin [Zocor] 40 mg PO DAILY 10/09/17 [History] Calcitriol [Rocaltrol] 0.25 mcg PO TID #120 capsule 10/11/17 [Rx] Calcium Carbonate/Vitamin D3 [Calcium 500 + Vit D Caplet] 1 tab PO TID 09/02/18 [History] LORazepam [Ativan] 0.5 mg PO HS PRN 11/03/18 [History] Allergy/AdvReac Type Severity Reaction Status Date / Time Amoxicillin [From Augmentin] AdvReac Vomiting Verified 10/09/17 14:34 clavulanic acid AdvReac Vomiting Verified 10/09/17 14:34 [From Augmentin] dexamethasone AdvReac Agitated Verified 10/09/17 14:34 gabapentin AdvReac See Verified 10/09/17 14:34 Comments morphine AdvReac Shakiness Verified 10/09/17 14:34 prednisone AdvReac See Verified 10/09/17 14:34 Comments All Systems PM: A 10-system review of systems was performed and is negative for pertinent findings except as documented above in the HPI. - Constitutional Constitutional: no chills, no fever(s), no night sweats - EENT Eyes: no change in vision, no discharge, no pain, no photophobia Ears: no ear discharge, no ear pain, no tinnitus Nose, mouth and throat: no dysphagia, no nasal discharge, no neck pain, no sore throat - Cardiovascular Cardiovascular ROS IM: no chest pain, no diaphoresis, no dyspnea, no ligh theadedness, no palpitations, no syncope - Respiratory Respiratory: no cough, no dyspnea, no wheezing, no excessive phlegm production - Gastrointestinal Gastrointestinal: no abdominal pain, no diarrhea, no hematemesis, no hematochezia, no melena, no nausea, no vomiting - Genitourinary Genitourinary: no change in urinary stream, no dysuria, no flank pain, no hematuria - Musculoskeletal Musculoskeletal ROS IM: no numbness, no tingling - Integumentary Integumentary IM: no rash, no unusual bruising - Neurological Neurological ROS: disequilibrium, dizziness, no confusion, no convulsions, no focal weakness, no numbness, no tingling, no tremor(s) - Hematologic/Lymphatic Hematologic/Lymphatic: no easy bruising - Constitutional Vitals: Temp Pulse Resp BP Pulse Ox 97.5 F L 76 16 121/80 97 11/03/18 07:32 11/03/18 07:32 11/03/18 07:32 11/03/18 07:32 11/03/18 07:32 Exam: NAD - Head Head exam: Present: atraumatic, normocephalic - Eye Eye exam: Present: PERRL, conjuntiva pink, sclera anicteric Pupils: Present: PERRL - Neck Neck exam general surgery: Present: supple, trachea midline. Absent: lymphadenopathy - Respiratory Respiratory exam: Present: CTAB. Absent: accessory muscle use, rales, rhonchi, wheezes - Cardiovascular Cardiovascular exam: Present: RRR, +S1, +S2. Absent: diastolic murmur, gallop, rubs, systolic murmur - GI/Abdominal GI/Abdominal exam: Present: normal bowel sounds, soft, no peritoneal signs. Absent: distended, tenderness - Extremities Exam Extremities exam: Present: warm, radial pulses palpable and symmetrical. Absent: calf tenderness, cyanotic, pedal edema - Neurological Exam Neurological exam: Present: CN II-XII intact, oriented X3, no focal deficits. Absent: pronater drift, facial droop, speech deficit - Skin Skin exam: Present: dry, intact Internal Med - H&P Results - Labs CBC & Chem 7: 11/03/18 02:50 11/03/18 02:50 Labs: Short CBC 11/03/18 Range/Units 02:50 WBC 7.5 (4.3-11.1) K/mcL Hgb 13.0 (11.5-15.4) g/dL Hct 39.1 (35.3-44.9) % Plt Count 198 (140-400) K/mcL Neutrophils # 5.6 (1.6-8.9) K/mcL BMP 11/03/18 02:50 Sodium 139 Potassium 3.7 Chloride 102 Carbon Dioxide 24 BUN 15 Creatinine 0.90 Glucose 125 H Calcium 8.5 L Urine 11/03/18 Range/Units 04:57 Urine Color Yellow (Yellow) Urine Clarity Clear (Clear) Urine pH 6.0 (5.0-8.0) pH Units Ur Specific [place] > 1.030 H (1.010-1.025) Urine Protein Negative (Neg-Trace) mg/dL Urine Glucose (UA) Normal (Normal) mg/dL - Impressions ITS Impressions Chest X-Ray 11/03/18 02:24 IMPRESSION: No acute findings. D/ / Wu Bridges / Wu Bridges Interpreting Provider: Wu Bridges Head CTA 11/03/18 02:25 IMPRESSION: Noncontrast CT head without acute intracranial abnormality. Intracranial right ICA, paraclinoid 3 mm broad-based aneurysm. This could be confirmed by catheter directed angiography if intervention is contemplated. Otherwise, CTA of the head and neck without acute arterial abnormality. D/ / 11/03/2018 07:57:15 Marcos rios Interpreting Provider: Marcos Perez Neck CTA 11/03/18 02:25 IMPRESSION: Noncontrast CT head without acute intracranial abnormality. Intracranial right ICA, paraclinoid 3 mm broad-based aneurysm. This could be confirmed by catheter directed angiography if intervention is contemplated. Otherwise, CTA of the head and neck without acute arterial abnormality. D/ /03/2018 07:57:15 Marcos rios Interpreting Provider: Marcos Perez - Assessment and plan (1) Vertigo Current Visit: Yes Status: Acute Assessment and plan: Pt has recurrent vertigo and was seen about a month ago Will give one dose of Iv solumedrol, IV fluids and antiver TID. 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 Outpatient followup with neurosurgery (3) Hypothyroid Current Visit: Yes Status: Acute Assessment and plan: Continue levothyroxine Qualifiers: Hypothyroidism type: acquired Qualified Code(s): E03.9 - Hypothyroidism, unspecified (4) Hyperlipemia Current Visit: Yes Status: Acute Assessment and plan: Continue statin Qualifiers: Qualified Code(s): E78.5 - Hyperlipidemia, unspecified (5) DVT prophylaxis Current Visit: Yes Status: Acute Assessment and plan: Heparin sc - Time Spent With Patient Total time spent is greater than 50% in coordination of care (as documented) at patient's floor/unit and/or counseling patient:
[2018-11-03] MEDS: Cholecalciferol (D-3) 1,000 UNIT TABLET PO SCH (09:43)
[2018-11-03] MEDS: 0.9 % Sodium Chloride 1,000 ML IVC SCH ×3 (09:43→22:13)
--- NOTE | 2018-11-03 13:36 | Neurology - Consult Note ---
Date of Encounter: 11/03/18 Time of Encounter: 11:33 Assessment and Plan (1) Positional vertigo Current Visit: No Status: Acute This patient will been having these positional vertigo she did have an event about a month ago which was later on subsided but not having recurring symptoms with difficulty with the balance considering significant positional component without any evidence of bleed or any other acute abnormality on her imaging studies and no focal findings on neurological examination suspect it is a peripheral vertigo. Would benefit from scheduled doses of meclizine along with IV fluids may give steroids as well as Ativan 1 mg at bedtime Check for other underlying metabolic or infectious etiologies especially any metabolic disturbances that may be the contributing to her symptoms like thyroid dysfunction (2) Nonruptured cerebral aneurysm, internal carotid artery Current Visit: Yes Status: Chronic Patient noted to have Intracranial right ICA, paraclinoid 3 mm broad-based aneurysm. Also noted on her previous imaging studies no evidence of any bleeding or any other associated abnormalities. It seems to be incidental finding do not think that it has anything to do with her positional vertigo No evidence of any bleeding Considering the size she may not need any immediate intervention perhaps could see neurovascular as an outpatient for their opinion regarding any treatment in the future most likely she would require surveillance with imaging studies Explained and discussed with the patient in detail History of Present Illness HPI: Ms. Maldonado is a 68 year old female with pmh of CVA, DVT, GERD, dyslipidemia pres enting with complaints of severe dizziness of 1 day duration and sensation of room spinning. She was recently discharged for similar complaints in the past 1 month. She describes her discomfort as a pressure in her head when she turns her head to the right side quick, and things start to go black. Associated with nausea and vomiting. She first started experiencing this a month ago. She was given solumedrol and antivert on her last discharge and symptoms gradually resolved over 2 weeks, she has seen ENT as an follow-up and may have vestibular rehabilitation with some help but now the symptoms recur yesterday without any other associated symptoms. CT head showed no acute abnormalities other than a 3mm infra clinoid aneurysm which was noted on last MRI as previous hospitalization. She denies any significant headaches any double vision blurred vision or any focal motor weakness but did complain of these significant room was spinning sensation generalized fatigue and difficulty with the balance worse when she is turning her head [id number]. Past Med Surg Social Fam HX - Past Medical History Medical history: CVA, DVT, GERD, hyperlipidemia, thyroid disease, other Additional medical history: lymphoma Psychiatric history: no psych history - Past Surgical History Surgical History: thyroidectomy Additional surgical history: right ankle, left arm, parathyroidectomy - Social History Smoking Status: Never smoker Smokeless Tobacco Status: No Alcohol use: none Drug use: none - Family History Mother Living Status: Hx Family Cancer: Yes (melenoma ) Hx Family Endocrine Disorder: Yes (Diabetes) Father Living Status: Hx Family Cancer: Yes (Melanoma) Hx Family Endocrine Disorder: Yes (Diabetes) Medications and Allergies Levothyroxine [Synthroid] 75 mcg PO HS 10/09/17 [History] Omeprazole [PriLOSEC] 20 mg PO DAILY 10/09/17 [History] Simvastatin [Zocor] 40 mg PO DAILY 10/09/17 [History] Calcitriol [Rocaltrol] 0.25 mcg PO TID #120 capsule 10/11/17 [Rx] Calcium Carbonate/Vitamin D3 [Calcium 500 + Vit D Caplet] 1 tab PO TID 09/02/18 [History] LORazepam [Ativan] 0.5 mg PO HS PRN 11/03/18 [History] Allergy/AdvReac Type Severity Reaction Status Date / Time Amoxicillin [From Augmentin] AdvReac Vomiting Verified 10/09/17 14:34 clavulanic acid AdvReac Vomiting Verified 10/09/17 14:34 [From Augmentin] dexamethasone AdvReac Agitated Verified 10/09/17 14:34 gabapentin AdvReac See Verified 10/09/17 14:34 Comments morphine AdvReac Shakiness Verified 10/09/17 14:34 prednisone AdvReac See Verified 10/09/17 14:34 Comments All Systems: The remainder of the systems were reviewed and are negative Physical Examination - Vital Signs Vital Signs: Initial Vital Signs Temp Pulse Resp BP Pulse Ox 97.7 F 86 11 148/87 99 11/03/18 01:36 11/03/18 01:36 11/03/18 01:36 11/03/18 01:36 11/03/18 01:36 - Exam Exam: GENERAL: Comfortable in no acute distress HEENT: Normal LUNGS: CTA HEART: RRR, EXTREMITIES: No Pedal edema. DETAILED NEUROLOGICAL EXAMINATION: MENTAL STATUS: Oriented to person, place, date and situation. Memory: knows the President, Aware of recent events Recent Memory Intact, Attention span is normal Cranial Nerve Examination: CN - II: Visual Acuity, Field of Vision Normal, Fundus examination: Not done Pupils- size shape reaction to light and accommodation: All normal. CN III, IV, : External ocular movements were intact, Pupils were reactive, Nodrooping of the eyelids CN V: Sensation over the face to light touch and pinprick all normal. Corneal reflexe s not tested, jaw jerk normal. CN VII: No facial asymmetry, no flattening of nasolabial folds, no difficulty in closing the eyes, no loss of forehead wrinkles, no difficulty in eye-closure, frowning raising eyebrows. CNVIII: No significant hearing loss CN IX, X: Uvula centralized not deviated, Gag reflex: Not tested CN X1: Sternocleidomastoid, trapezius, normal or evidence of any weakness. CN X11: No Dysarthria, no wasting or fibrilation f tongue muscles, no deviation, tongue muscle strength normal. Motor examination: No hypertrophy, tone was normal, power grade 0-5 Upper limbs Proximal- No difficulty in lifting the arms above the head. Distal- No weakness in distal muscles On formal testing 5/5 all over Lower limbs On formal testing 5/5 all over Coordination: [id number] normal. Target pursuit normal finger tapping normal, Rapid alt ernating moment of wrist normal Sensory system: Superficial sensations- Touch normal. Pain- Pinprick, Temperature all normal, Deep sensation normal, Joint position sense normal. Cortical sensation, Tactile discrimination, localization and extinction all normal. Deep tendon reflexes. Symmetrical bilateral, No evidence of Babinski. No sign of meningeal irritation Gait Examination: Deferred - Constitutional General appearance: comfortable Results - Laboratory Findings CBC and BMP: 11/03/18 02:50 11/03/18 02:50 Abnormal lab findings: Abnormal lab results Glucose 125 mg/dL (70-105) H 11/03/18 02:50 Calcium 8.5 mg/dL (8.6-10.3) L 11/03/18 02:50 Ur Specific [place] > 1.030 (1.010-1.025) H 11/03/18 04:57 Ur Leukocyte Esterase Moderate (Negative) H 11/03/18 04:57 Urine Microscopic WBC 15-30 per hpf (0-3) H 11/03/18 04:57 Ur Squamous Epith Cells Many per lpf (None-Few) H 11/03/18 04:57 Ur Culture Indicated? NO. (NO) A 11/03/18 04:57 - Diagnostic Findings Additional findings: CTA of the head and neck showed Intracranial right ICA, paraclinoid 3 mm broad-based aneurysm. Otherwise, CTA of the head and neck without acute arterial abnormality. Consult Discharge Plan - Plan Referrals: NONE,PCP [Primary Care Provider] -
[2018-11-03] MEDS ORDERED: *HR* LORazepam 1 MG TABLET PO PRN (13:50)
[2018-11-03 15:18] LABS: Vitamin B12 314 pg/mL (250-1100)
[2018-11-03 15:20] LABS: Folate > 22.3 ng/mL (3.0-16.0)
[2018-11-03] MEDS ORDERED: Acetaminophen 325 MG TABLET PO ONE (19:53)
[2018-11-03] MEDS: *HR* Heparin 5,000 UNIT/ML VIAL SQ SCH (22:09)
[2018-11-04] MEDS ORDERED: Ondansetron 4 MG/2 ML VIAL IVP PRN (05:38)
[2018-11-04] MEDS: *HR* Heparin 5,000 UNIT/ML VIAL SQ SCH ×3 (05:53→16:39)
[2018-11-04] MEDS: Cholecalciferol (D-3) 1,000 UNIT TABLET PO SCH (09:06)
--- NOTE | 2018-11-04 10:50 | Internal Med Progress Note ---
Hospitalist Progress Note - Encounter Date of Encounter: 11/04/18 Time of Encounter: 10:50 - Subjective Interval History: Patient was seen and examined at bedside currently continues to complain of lightheadedness and spinning particularly when she moves her head back and forth. Denies any chest pain shortness of breath or abdominal pain. Denies any nausea or any vision changes or headaches We did discuss treatment plan with patient verbalized understanding - Exam Vitals: Temp Pulse Resp BP Pulse Ox 97.6 F 75 16 114/79 97 11/04/18 07:02 11/04/18 07:02 11/04/18 07:02 11/04/18 07:02 11/04/18 07:02 Exam: General: Patient is alert sitting up in bed, no apparent distress HEENT: Atraumatic, pupils PERRLA with EOMI, anicteric sclera, moist mucous membranes Neck: Soft, full range of motion Cardiovascular: Regular rate and rhythm without murmurs to auscultation Respiratory: Clear to auscultation bilateral lung willis, no accessory muscle use, no crackles, wheezing, rhonchi Abdomen: soft, nontender Extremities: No swelling or edema, warm and dry skin Neuro: Alert and oriented 3 appropriate following simple commands -no nystagmus no focal deficits Psych: appropriate mood and affect - Assessment and Plan (1) Hypothyroid Current Visit: Yes Status: Acute Assessment and Plan: Continue levothyroxine 2/3 TSH stable at this time continue with levothyroxine (2) Vertigo Current Visit: Yes Status: Acute Assessment and Plan: Pt has recurrent vertigo and was seen about a month ago Will give one dose of Iv solumedrol, IV fluids and antiver TID. CTA head shows no acute intracranial abnormalities Neurology consulted and recommend ENT follow up outpatient for vestibular rehab and neurosurgery for 3 mm aneurysm 2/3 Patient has recurrent vertigo it is relieved with meclizine. 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 We will also outpatient follow up with ENT as outpatient. As well as with neurosurgery for 3 mm aneurysm. Also outpatient follow-up for vestibular rehabilitation.-Do not see any infectious process that could be contributing to symptoms as well as lab work is unremarkable (3) Nonruptured cerebral aneurysm, internal carotid artery Current Visit: Yes Status: Chronic Assessment and Plan: see #1. 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 will repeat MRI to evaluate- will need follow up with ENT - Time Spent with Patient Total time spent is greater than 50% in coordination of care (as documented) at patient's floor/unit and/or counseling patient: Internal Medicine: Result - Labs CBC & Chem 7: 11/03/18 02:50 11/03/18 02:50 - Impressions Impressions Head CTA 11/03/18 02:25 IMPRESSION: Noncontrast CT head without acute intracranial abnormality. Intracranial right ICA, paraclinoid 3 mm broad-based aneurysm. This could be confirmed by catheter directed angiography if intervention is contemplated. Otherwise, CTA of the head and neck without acute arterial abnormality. D/ : / 11/03/2018 07:57:15 Marcos rios Interpreting Provider: Marcso Perez Neck CTA 11/03/18 02:25 IMPRESSION: Noncontrast CT head without acute intracranial abnormality. Intracranial right ICA, paraclinoid 3 mm broad-based aneurysm. This could be confirmed by catheter directed angiography if intervention is contemplated. Otherwise, CTA of the head and neck without acute arterial abnormality. D/ 11/03/2018 07:57:15 Marcos rios Interpreting Provider: Marcos Perez Consult Discharge Plan - Plan Referrals: NONE,PCP [Primary Care Provider] - (1) Hypothyroid Qualifiers: Hypothyroidism type: acquired Qualified Code(s): E03.9 - Hypothyroidism, unspecified (4) Hyperlipemia Qualifiers: Qualified Code(s): E78.5 - Hyperlipidemia, unspecified
[2018-11-04 18:22] LABS: Basophils # 0.1 K/mcL (0.0-0.2); Basophils % 0.5 %; Eosinophils # 0.2 K/mcL (0.0-0.6); Eosinophils % 1.7 %; Hematocrit 38.5 % (35.3-44.9); Hemoglobin 12.3 g/dL (11.5-15.4); Immature Granulocytes % 0.8 % (0-4); Lymphocytes # 2.7 K/mcL (0.6-4.6); Lymphocytes % 24.4 %; Mean Corpuscular HGB Conc 31.9 g/dL (31.6-35.5); Mean Corpuscular Hemoglobin 29.9 pg (28.0-33.3); Mean Corpuscular Volume 93.4 fL (83.0-100.0); Monocytes # 0.8 K/mcL (0.0-1.3); Neutrophils # 7.2 K/mcL (1.6-8.9); Platelet Count 239 K/mcL (140-400); Red Blood Count 4.12 M/mcL (3.82-4.97); Red Cell Distribution Width 13.2 % (11.5-14.5); Segmented Neutrophils % 65.6 %
[2018-11-04 18:44] LABS: BUN/Creatinine Ratio 21 (6-26); Blood Urea Nitrogen 19 mg/dL (8-23); Calcium 8.8 mg/dL (8.6-10.3); Carbon Dioxide 26 mEq/L (23-29); Chloride 105 mEq/L (98-107); Glucose 109 mg/dL (70-105); Magnesium 1.9 mg/dL (1.6-2.6); Osmolality,Calculated 293 (280-300); Phosphorous 4.7 mg/dL (2.7-4.5); Potassium 3.6 mEq/L (3.5-5.1); Sodium 140 mEq/L (136-145); eGFR For Non-African Americans > 60 (> 60)
[2018-11-04] MEDS: 0.9 % Sodium Chloride 1,000 ML IVC SCH (20:39)
[2018-11-05] MEDS: *HR* Heparin 5,000 UNIT/ML VIAL SQ SCH (06:18)
[2018-11-05 07:31] LABS: Basophils # 0.1 K/mcL (0.0-0.2); Basophils % 0.6 %; Eosinophils # 0.3 K/mcL (0.0-0.6); Eosinophils % 2.7 %; Hematocrit 41.1 % (35.3-44.9); Hemoglobin 13.3 g/dL (11.5-15.4); Immature Granulocytes % 0.6 % (0-4); Lymphocytes # 2.5 K/mcL (0.6-4.6); Lymphocytes % 26.1 %; Mean Corpuscular HGB Conc 32.4 g/dL (31.6-35.5); Mean Corpuscular Volume 92.8 fL (83.0-100.0); Mean Platelet Volume 10.5 fL (9.4-12.4); Monocytes # 0.6 K/mcL (0.0-1.3); Monocytes % 6.2 %; Platelet Count 271 K/mcL (140-400); Red Blood Count 4.43 M/mcL (3.82-4.97); Red Cell Distribution Width 13.2 % (11.5-14.5); Segmented Neutrophils % 63.8 %
[2018-11-05 07:51] LABS: BUN/Creatinine Ratio 24 (6-26); Blood Urea Nitrogen 21 mg/dL (8-23); Calcium 8.8 mg/dL (8.6-10.3); Carbon Dioxide 26 mEq/L (23-29); Chloride 104 mEq/L (98-107); Glucose 86 mg/dL (70-105); Osmolality,Calculated 294 (280-300); Potassium 4.1 mEq/L (3.5-5.1); Sodium 141 mEq/L (136-145); eGFR For Non-African Americans > 60 (> 60)
[2018-11-05] MEDS: Cholecalciferol (D-3) 1,000 UNIT TABLET PO SCH (08:38)
[2018-11-05 12:10] VITALS: BP 129/80
--- NOTE | 2018-11-05 12:47 | Neurology Progress Note ---
<Gibson Rdz J - Last Filed: 11/05/18 12:42> Date of Encounter: 11/05/18 Time of Encounter: 12:42 Assessment and Plan (1) Nonruptured cerebral aneurysm, internal carotid artery Current Visit: Yes Status: Chronic Patient has known intracranial right ICA, paraclinoid 3 mm broad-based aneurysm. No evidence of bleeding on previous imaging studies. I do not believe this would be contributing to her positional vertigo. Recommend appropriate surveillance of aneurysm. I do not not feel at this time there is any need for urgent intervention. (2) Positional vertigo Current Visit: No Status: Acute Has been having positional vertigo; initially began early September and was self limited, subsiding without intervention. Has not had recurrence until this past Nov,; she reports almost daily occurrence since. Vertigo is worse with position change and most noted with turning head to the right. 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 MRI head obtained today and did not find any acute findings. She does not appear to have any underlying metabolic or infectious etiologies to explain her vertiginous symptoms. Recommendations are to continue daily meclizine as needed. She will benefit from a short course of oral steroids at discharge as well. I recommend vestibular therapy in the outpatient setting. Neurology signing this time. Please reconsult as needed. Thank you for your consultation. Subjective Principal diagnosis: positional vertigo Interval history: Seen and examined at bedside today. She appears anxious and in mild distress d/t positional vertigo. She is concerned about how the vertigo is impacting her independence and quality of life. I discussed the findings of her MRI and that there was no acute findings. Also I discussed further interventions including meclizine, possible oral steroids and vestibular therapy. Objective - Constitutional Vitals: Temp Pulse Resp BP Pulse Ox 98.0 F 85 15 129/80 94 11/05/18 12:00 11/05/18 12:00 11/05/18 12:11/05/18 12:11/05/18 12:00 Exam: Examination: General Examination: *CONSTITUTIONAL: in mild distress d/t vertigo symptoms, appear anxious *GENERAL APPEARANCE OF PATIENT Elderly obese female, appears healthy and well groomed *EYES: pupils equal, round, reactive to light and accommodation, conjunctiva clear without masses or ulcerations, fundi normal. *CARDIOVASCULAR RRR, S1, S2, no mumurs, rubs, or gallops, no peripheral edema, distal temperature normal, dorsalis pedis pulses normal. Musculoskeletal: *GAIT AND STATION normal, with normal Romberg testing, no abnormalities such as broad base gait or spasticity *ASSESSMENT OF MUSCLE STRENGTH IN THE UPPER AND LOWER EXTREMITIES bilateral deltoid, bicep, tricep, taker out strength, hip flexors ,anterior tibialis, dorsoflexion of the foot 5/5 *MUSCLE TONE IN THE UPPER AND LOWER EXTREMITIES normal. No abnormal movements, fasciculations or atrophy identified. Neurological: *ORIENTATION to time and place *RECURRENT AND REMOTE MEMORY intact *ATTENTION AND CONCENTRATION are normal *LANGUAGE FUNCTION no significant aphasia or dysarthia was noted. *FUND OF KNOWLEDGE aware of current events, past history, vocabulary *MENTAL attention span and concentration normal. *CN II optic fundi were normal, no papilledema noted. *CN III,IV, PERRLA extraocular eye movements were full, no nystagmus and no ptosis noted. *CN V shows normal sensation and jaw opens symmetrically. *CN VII shows normal facial movement symmetrically, upper and lower bilaterally. *CN VIII shows no significant hearing loss on examination in the office. *CN IX,,X palate elevated symmetrically and normal gag reflex was noted. *CN XI normal strength in the sternocleidomastoid muscles, symmetrical shoulder shrugging. *CN XII tongue protruded in the midline, with normal strength and movement. *SENSORY EXAMINATION pinprick sensation intact, and light touch(vibration sense). *REFLEXES: deep tendon reflexes were normal and symmetrical , grade 2/4 diffusely, no pathological reflexes were noted. *CEREBELLAR TESTING normal finger to nose, heel/knee/sotelo, and tandem walk. *PAIN LEVEL 0/10 Results - Laboratory Findings CBC and BMP: 11/05/18 06:26 11/05/18 06:26 Abnormal lab findings: Abnormal lab results Phosphorus 4.7 mg/dL (2.7-4.5) H 11/04/18 18:11 Folate > 22.3 ng/mL (3.0-16.0) H 11/03/18 14:10 Ur Specific [place] > 1.030 (1.010-1.025) H 11/03/18 04:57 Ur Leukocyte Esterase Moderate (Negative) H 11/03/18 04:57 Urine Microscopic WBC 15-30 per hpf (0-3) H 11/03/18 04:57 Ur Squamous Epith Cells Many per lpf (None-Few) H 11/03/18 04:57 Ur Culture Indicated? NO. (NO) A 11/03/18 04:57 Consult Discharge Plan - Plan Referrals: NONE,PCP [Primary Care Provider] - <Leora Chung I - Last Filed: 11/05/18 13:23> Date of Encounter: 11/05/18 Assessment and Plan (1) Positional vertigo Current Visit: No Status: Acute Pt was seen and examined, my medical decision was reviewed with the Gibson Rdz CNP, I agree with the documented findings, disposition and treatment plan, as described except to the extent set forth below, MRI of Brain IAC, did not show any structural abnormalities or any evidence of infarct Overall she is a stable suggest vestibular rehabilitation as an outpatient Thank you very much for your kind consultation Leora Chung MD (2) Nonruptured cerebral aneurysm, internal carotid artery Current Visit: Yes Status: Chronic Objective - Constitutional Vitals: Temp Pulse Resp BP Pulse Ox 98.0 F 85 15 129/80 94 11/05/18 12:00 11/05/18 12:00 11/05/18 12:00 11/05/18 12:00 11/05/18 12:00 Results - Laboratory Findings CBC and BMP: 11/05/18 06:26 11/05/18 06:26 Abnormal lab findings: Abnormal lab results Phosphorus 4.7 mg/dL (2.7-4.5) H 11/04/18 18:11 Folate > 22.3 ng/mL (3.0-16.0) H 11/03/18 14:10 Ur Specific [place] > 1.030 (1.010-1.025) H 11/03/18 04:57 Ur Leukocyte Esterase Moderate (Negative) H 11/03/18 04:57 Urine Microscopic WBC 15-30 per hpf (0-3) H 11/03/18 04:57 Ur Squamous Epith Cells Many per lpf (None-Few) H 11/03/18 04:57 Ur Culture Indicated? NO. (NO) A 11/03/18 04:57
--- NOTE | 2018-11-05 13:32 | Discharge Summary ---
- NOTES TO OUTPATIENT PROVIDER Notes to Outpatient Provider: will be given steroid burst and meclizine- follow up with ENT as well as neurosurgery- for aneurysm Date of Encounter: 11/05/18 Time of Encounter: 13:28 - Discharge Diagnosis (1) Hypothyroid Priority: Secondary Status: Acute Qualifiers: Hypothyroidism type: acquired Qualified Code(s): E03.9 - Hypothyroidism, unspecified (2) Vertigo Priority: Primary Status: Acute (3) Nonruptured cerebral aneurysm, internal carotid artery Priority: Secondary Status: Chronic (4) Hyperlipemia Priority: Secondary Status: Acute Qualifiers: Qualified Code(s): E78.5 - Hyperlipidemia, unspecified (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 Maldonado is a 68 year old female past medical history of CVA DVT GERD dyslipidemia thyroid disease -presented with complaints of severe dizziness for approximately one day and has been experiencing sensation of room spinning. She was evaluated and discharged approximately one month ago for similar symptoms. Symptoms are worse with turning of her head particular to the right she does have some nausea. She was given Solu-Medrol antevert and her symptoms have impr lorena. She did have a follow-up with ENT as well as with vestibular rehabilitation at her last discharge. 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 She does not appear to have any underlying metabolic or infectious etiologies. Patient was evaluated by neurology-he did recommend continuation of meclizine and short burst of oral steroids. Advised patient to follow-up with neurosurgery concerning intracranial right ICA, paraclinoid 3 mm broad-based aneurysm.also advised patient to follow-up with ENT as outpatient. Currently patient is hemodynamically stable and ready for discharge - Time Spent with Patient Total time spent providing and/or coordinating discharge services: - Discharge Medications Home Medications: Levothyroxine [Synthroid] 75 mcg PO DAILY 10/09/17 [History] Omeprazole [PriLOSEC] 20 mg PO DAILY 10/09/17 [History] Calcitriol [Rocaltrol] 0.25 mcg PO TID #120 capsule 10/11/17 [Rx] Calcium Carbonate/Vitamin D3 [Calcium 500 + Vit D Caplet] 1 tab PO TID 09/02/18 [History] Simvastatin 40 mg PO DAILY 11/05/18 [History] Allergies/Adverse Reactions: Allergy/AdvReac Type Severity Reaction Status Date / Time Amoxicillin [From Augmentin] AdvReac SEVERE Verified 11/05/18 10:54 NAUSEA, VOMITING clavulanic acid AdvReac SEVERE Verified 11/05/18 10:54 [From Augmentin] NAUSEA, VOMITING dexamethasone AdvReac Agitated Verified 11/05/18 10:54 gabapentin AdvReac See Verified 11/05/18 10:54 Comments morphine AdvReac "TIGHTENS Verified 11/05/18 10:54 MY BODY UP" prednisone AdvReac "MAKES ME Verified 11/05/18 10:54 VERY VIOLENT" Date of admission: 11/03/18 06:03 Primary care physician: PCP NONE Consults: 11/03/18 07:30 Consult to Physical Therapy [CONS] Routine Comment: Evaluate, develop and implement POC Reason for Consult: vertigo Does patient have active BEDREST order?: No Is patient medically & hemodynamically stable?: Yes Patient assessed for mobility or mobilized this visit?: No 11/03/18 07:31 Consult to Neurology [CONS] Routine Consulting Provider: Neurology [facility] Reason for Consult: recurrent vertigo Call Completed: No Discharging clinician: Sherri Jaimes Anticipated date of discharge: 11/05/18 - Constitutional Vitals: Temp Pulse Resp BP Pulse Ox 98.0 F 85 15 129/80 94 11/05/18 12:00 11/05/18 12:00 11/05/18 12:00 11/05/18 12:00 11/05/18 12:00 General appearance: Present: A&O X 3 Exam: General: Patient is alert sitting up in bed, no apparent distress HEENT: Atraumatic, pupils PERRLA with EOMI, anicteric sclera, moist mucous membranes Neck: Soft, full range of motion Cardiovascular: Regular rate and rhythm without murmurs to auscultation Respiratory: Clear to auscultation bilateral lung willis, no accessory muscle use, no crackles, wheezing, rhonchi Abdomen: soft, nontender Extremities: No swelling or edema, warm and dry skin Neuro: Alert and oriented 3 appropriate following simple commands -no nystagmus no focal deficits Psych: appropriate mood and affect - Head Head exam: Present: atraumatic, normocephalic - Eye Eye exam: Present: PERRL, conjuntiva pink, sclera anicteric Pupils: Present: PERRL - Neck Neck exam general surgery: Present: supple, trachea midline. Absent: lymphadenopathy - Respiratory Respiratory exam: Present: CTAB. Absent: accessory muscle use, rales, rhonchi, wheezes - Cardiovascular Cardiovascular exam: Present: RRR, +S1, +S2. Absent: diastolic murmur, gallop, rubs, systolic murmur - GI/Abdominal GI/Abdominal exam: Present: normal bowel sounds, soft, no peritoneal signs. Absent: distended, tenderness - Extremities Exam Extremities exam: Present: warm, radial pulses palpable and symmetrical. Absent: calf tenderness, cyanotic, pedal edema - Neurological Exam Neurological exam: Present: CN II-XII intact, oriented X3, no focal deficits. Absent: pronater drift, facial droop, speech deficit - Skin Skin exam: Present: dry, intact - Patient Status Disposition: Home, Self-Care Condition: Fair Functional capacity at discharge: independent ambulation - Discharge Instructions Instructions: Hypothyroidism (DC) Follow Up With: NONE,PCP [Primary Care Provider] - - Diet and Activity Activity: as per physical therapy Diet: advance to your usual diet
--- NOTE | 2018-11-05 17:04 | Electrocardiograph Report ---
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
== END 2018-11-05 15:24 | disposition home or self-care (01) ==
LOC: 3BNU 01:27 → EMEROOARM 01:27 → 3BNU 06:36
PROVIDERS: ADMIT Internal Medicine; ATTEND Internal Medicine

== ENCOUNTER 2021-11-30 08:10 | Observation (INO) ==
[2021-11-30] MEDS ORDERED: Acetaminophen 325 MG TABLET PO ONE (09:20)
[2021-11-30] MEDS ORDERED: Ondansetron 4 MG/2 ML VIAL IVP ONE (09:20)
[2021-11-30] MEDS ORDERED: 0.9 % Sodium Chloride 1,000 ML IVC ONE (09:20)
[2021-11-30 09:37] LABS: Basophils # 0.1 K/mcL (0.0-0.2); Basophils % 0.6 %; Eosinophils # 0.2 K/mcL (0.0-0.6); Eosinophils % 1.6 %; Hematocrit 42.1 % (35.3-44.9); Hemoglobin 13.8 g/dL (11.5-15.4); Immature Granulocytes % 0.4 % (0-4); Lymphocytes # 1.4 K/mcL (0.6-4.6); Lymphocytes % 13.9 %; Mean Corpuscular HGB Conc 32.8 g/dL (31.6-35.5); Mean Corpuscular Hemoglobin 29.6 pg (28.0-33.3); Mean Corpuscular Volume 90.3 fL (83.0-100.0); Mean Platelet Volume 10.1 fL (9.4-12.4); Monocytes # 0.5 K/mcL (0.0-1.3); Monocytes % 5.3 %; Neutrophils # 7.8 K/mcL (1.6-8.9); Platelet Count 340 K/mcL (140-400); Red Blood Count 4.66 M/mcL (3.82-4.97); Segmented Neutrophils % 78.2 %
[2021-11-30 09:44] LABS: INR 1.1; Prothrombin Time 11.9 Seconds (9.4-12.1)
[2021-11-30 09:48] LABS: Alanine Aminotransferase 16 Units/L (7-52); Albumin 4.3 g/dL (3.5-5.7); Albumin/Globulin Ratio 1.3 (1.1-2.2); Alkaline Phosphatase 69 Units/L (34-104); Aspartate Amino Transferase 18 Units/L (13-39); BUN/Creatinine Ratio 17 (6-26); Bilirubin,Total 0.4 mg/dL (0.3-1.0); Blood Urea Nitrogen 16 mg/dL (8-23); Carbon Dioxide 28 mEq/L (23-29); Chloride 98 mEq/L (98-107); Creatine Kinase 81 Units/L (30-223); Globulin 3.2 g/dL (2.4-3.5); Glucose 120 mg/dL (70-105); Osmolality,Calculated 286 (280-300); Potassium 3.8 mEq/L (3.5-5.1); Sodium 137 mEq/L (136-145); Total Protein 7.5 g/dL (6.4-8.9); Troponin I < 0.03 ng/mL (< 0.04); eGFR For African Americans > 60 (> 60); eGFR For Non-African Americans 57 (> 60)
[2021-11-30] MEDS ORDERED: Isovue-370 500 ML BOTTLE IVP ONE (10:46)
[2021-11-30 13:01] LABS: Bilirubin,Urine Negative (Negative); Blood,Urine Negative (Negative); Clarity,Urine Clear (Clear); Color,Urine Light-Yellow (Yellow); Glucose,Urine (UA) Normal (Normal); Ketones,Urine Negative (Negative); Leukocyte Esterase,Urine Negative (Negative); Nitrite,Urine Negative (Negative); Protein,Urine Negative (Neg-Trace); Specific Gravity,Urine 1.026 (1.010-1.025); Urobilinogen,Urine Normal (Normal)
[2021-11-30 13:08] LABS: Amphetamine Screen,Urine Negative ng/mL (Cutoff=1000); Barbiturate Screen,Urine Negative ng/mL (Cutoff=200); Benzodiazepines Screen,Urine Negative ng/mL (Cutoff=200); Cannabinoid Screen,Urine Negative ng/mL (Cutoff = 50); Cocaine Screen,Urine Negative ng/mL (Cutoff= 300); Opiate Screen,Urine Negative ng/mL (Cutoff=300); Phencyclidine Screen,Urine Negative ng/mL (Cutoff=25)
[2021-11-30] MEDS ORDERED: Aspirin 325 MG TABLET PO ONE (13:16)
[2021-11-30] MEDS ORDERED: Perflutren Lipid Microsphere 1.3 ML in 0.9 % Sodium Chloride 8.7 ML IVP PRN (13:46)
[2021-11-30] MEDS ORDERED: *HR* LORazepam 2 MG/ML VIAL IVP PRN (13:52)
[2021-11-30] MEDS ORDERED: Nitroglycerin 0.4 MG TAB.SUBL SL PRN (13:52)
[2021-11-30] MEDS: Ondansetron 4 MG/2 ML VIAL IVP PRN ×2 (16:50→23:17)
[2021-11-30] MEDS: *HR* Heparin 5,000 UNIT/ML VIAL SQ SCH ×2 (16:51→20:39)
[2021-11-30] MEDS ORDERED: *HR* LORazepam 2 MG/ML VIAL IVP ONE (17:00)
[2021-12-01 03:27] LABS: Chol/HDL Ratio 3.8 (0-4.9)
[2021-12-01 03:41] LABS: Estimated Average Glucose 137 mg/dl; Hemoglobin A1C 6.4 %
[2021-12-01] MEDS: *HR* Heparin 5,000 UNIT/ML VIAL SQ SCH ×2 (05:08→12:54)
[2021-12-01 07:10] VITALS: O2SAT 91
[2021-12-01] MEDS ORDERED: Metoprolol XL (24 HR) Succ 25 MG TAB.ER.24H PO SCH (09:00)
[2021-12-01] MEDS ORDERED: Perflutren Lipid Microsphere 1.3 ML in 0.9 % Sodium Chloride 8.7 ML IVP PRN (09:07)
[2021-12-01] MEDS: calcitrioL 0.25 MCG CAPSULE PO SCH ×2 (09:46→15:12)
[2021-12-01] MEDS: Ondansetron 4 MG/2 ML VIAL IVP PRN (09:52)
[2021-12-01 11:20] VITALS: PULSE 96
[2021-12-01 15:19] VITALS: BP 119/76; TEMP 98
[2021-12-01] MEDS ORDERED: Acetaminophen 325 MG TABLET PO ONE (15:26)
== END 2021-12-01 17:10 | disposition home or self-care (01) ==
LOC: 3BNU 08:10 → EMEROOARM 08:10 → SUATTDRO 13:48 → 3BNU 15:16
PROVIDERS: ADMIT Family Medicine; ATTEND Student in an Organized Health Care Education/Training Program